=== PATIENT | male | born 1945 | race Caucasian/White ===

== ENCOUNTER 2020-10-04 14:06 | Inpatient (IN) ==
--- NOTE | 2020-10-04 16:10 | Emergency Department Note ---
Impression & Plan Gross hematuria, Self-catheterizes urinary bladder, Pulmonary embolism, Renal insufficiency, History of partial nephrectomy ED Provider Note NAME: CHELSIE MANUEL AGE: 74 SEX: M ARRIVES VIA: Walk-In INFORMANT: Patient , ED PROVIDER(S): Martin Staley MD CHIEF COMPLAINT: Hematuria PLAN: Disposition: Admit MEDICAL DECISION MAKING: The patient is a pleasant 74-year-old gentleman with a pmhx of a remote history of renal cancer s/p partial right nephrectomy, COPD, CHF, BPH needing to self straight cath, HTN who presents emergency department for evaluation of gross hematuria that he reports has been ongoing since he was in [facility] admitting last week for SOB, diagnosed with PE and started on Lovenox. He reports he began to have blood in his urine the day he presented to [place] ED and had a cath performed that was traumatic and then his bleeding continued until today. He reports he was discharged with plan to follow up with his pcp to monitor his bloody urine but to continue his Lovenox. He reports he was then referred back to [place] ED where he had repeat blood work that demonstrates worsening renal function. Records obtain document discussion with nephrology and patient was to f/u with them today. However, he reports his pcp referred him here and is not aware of following up with a consumer sales representative. He reports he sees a urologist at [place] for his h/o of BPH and need for self straight cath TID. The patient and report they stopped his Lovenox injections yesterday because his bleeding continued. The patient denies dizziness, CP, SOB, n/v/d, abd pain. On arrival the patient is in NAD, AFVSS. Abdomen is benign. EKG without evidence of acute ischemia. CXR negative for acute process. WBC, 11.9, nonspecific. Platelets wnl. H/H 14.5/42 approximate to values from [place]. Chemistry without acidosis. Cr. 2.1 without prior values for comparison. LFTs and electrolytes unremarkable. UA with epithelial cells and so wiill awaite culture. 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 Unclear how these findings contribute to patient's hematuria as e is confident his blood urine began when he was admitting to [place] and had a traumatic catheterization. Given patient's hematuria with unclear chronicity of renal impairment and question of tx approach to patients PE in the setting of bleeding with failed coordination of outpatient f/u, reasonable to admit for observation and further evaluation. Patient and his are agreeable. Case was discussed with Dr. Lorenzo, [facility] [place], who will evaluate the patient for admission. Triage Nursing notes reviewed and agree them. Additional history obtained from [facility] records. Prior medical records reviewed Vital Signs: reviewed and remarkable for no significant abnormalities Differential diagnosis: Renal colic, UTI, appendicitis, diverticulitis, mesenteric ischemia, aortic pathology, infections, inflammatory bowel disease, PUD, biliary pathology, as well as other pathologies. ER treatment provided: See below. Diagnostics interpreted by me: ECG: NSR, 88 bpm, no ectopy, RBBB no overt ST elevation or depression. Cardiac Monitoring: An order for continuous cardiac monitoring was placed and demonstrated NSR, 88 bpm, no ectopy. Laboratory studies: See below. Imaging studies: XR chest 1V portable CLINICAL HISTORY: Chest Pain COMPARISON STUDY: No previous studies for comparison. FINDINGS: Lung volumes are normal. Lungs are clear. There is no pneumothorax or pleural effusion. Cardiac size is normal. Mediastinal contours are normal. There is no evidence for pulmonary edema. There may be emphysema. IMPRESSION: 1. No acute cardiopulmonary findings. 2. Possible emphysema. -- ABDOMEN AND PELVIS CT WITHOUT CONTRAST CT DOSE: 1163.24 mGy.cm HISTORY: Acute kidney injury with hematuria. recent PE dx, hematuria, LEATHA TECHNIQUE: Multiaxial CT images of the abdomen and pelvis were performed without contrast. A dose lowering technique was utilized adhering to the principles of ALARA. COMPARISON STUDY: None. FINDINGS: Mild linear scarring/atelectasis of the right middle lobe with associated traction bronchiectasis. Minimal additional scarring of the lung bases. No pneumatosis or pneumoperitoneum. The imaged inferior cardiac chambers are unremarkable. Calcified granulomata of the spleen. Unremarkable pancreas and adrenal glands. Unremarkable unenhanced liver. Gallbladder is mildly contracted. No biliary ductal dilation. Nonspecific left-sided perinephric stranding. Ureters are not well evaluated secondary to streak artifact from bilateral hip total joint arthroplasties. No right-sided hydronephrosis. Embolization coils project over the inferior pole left kidney. 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 Mild perinephric stranding. Moderate urinary bladder distention. The prostate appears to be enlarged. Mixed plaque the abdominal aorta without aneurysm. No adenopathy. Small hiatal hernia. There is no bowel obstruction or bowel wall thickening. Mild to moderate fecal retention. Normal appendix. Subcutaneous edema and hemorrhage of the left anterior abdominal wall. Degenerative changes of the pelvis and spine. No acute fracture. 30% anterior endplate compression deformity at T12 with 25% anterior endplate compression deformity at L1 demonstrate no retropulsion and are favored to be chronic. Lumbar dextroscoliosis. IMPRESSION: 1. No renal or ureteral calculi or obstructive uropathy. 2. 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 3. No large retroperitoneal hematoma. 4. No bowel obstruction or bowel wall thickening. Normal appendix. 5. Prior granulomatous disease. 6. Small hiatal hernia. 7. Additional findings as above. Consultation(s): Case was discussed with Dr. Lorenzo, [facility] hospitalist, who will evaluate the patient for admission. HPI: The patient is a pleasant 74-year-old gentleman with a pmhx of a remote history of renal cancer s/p partial right nephrectomy, COPD, CHF, BPH needing to self straight cath, HTN who presents emergency department for evaluation of gross hematuria that he reports has been ongoing since he was in [facility] admitting last week for SOB, diagnosed with PE and started on Lovenox. He reports he began to have blood in his urine the day he presented to [place] ED and had a cath performed that was traumatic and then his bleeding continued until today. He reports he was discharged with plan to follow up with his pcp to monitor his bloody urine but to continue his Lovenox. He reports he was then ref erred back to [place] ED where he had repeat blood work that demonstrates worsening renal function. Records obtain document discussion with nephrology and patient was to f/u with them today. However, he reports his pcp referred him here and is not aware of following up with a consumer sales representative. He reports he sees a urologist at [place] for his h/o of BPH and need for self straight cath TID. The patient and report they stopped his Lovenox injections yesterday because his bleeding continued. The patient denies dizziness, CP, SOB, n/v/d, abd pain. ROS: See above HPI for pertinent positives & negatives. A total of 10 systems reviewed and were otherwise negative. PAST MEDICAL HISTORY:See below. PAST SURGICAL HISTORY:See below. FAMILY HISTORY:See below. SOCIAL HISTORY:See below. HOME MEDICATIONS:See below. ALLERGIES:See below. VITALS:See below. PHYSICAL EXAMINATION: GENERAL: Awake, alert, well-appearing, in no distress HENT: Normocephalic, atraumatic. Oropharynx with dry mucous membranes and otherwise unremarkable. EYES: Normal conjunctiva. Sclera non-icteric. NECK: Supple. No nuchal rigidity. FROM. No JVD. RESPIRATORY: Clear to auscultation. CARDIAC: Regular rate, normal rhythm. Extremities warm and well perfused. Pulses equal. ABDOMEN: Soft, non-distended. No tenderness to palpation. No rebound or guarding. No masses. RECTAL: Deferred. MUSCULOSKELETAL: Chest examination reveals no tenderness. The back is symmetrical on inspection without obvious abnormality. There is no CVA tenderness to palpation. No joint edema. LOWER EXTREMITIES: Calves are equal size bilaterally and non-tender. 1+ BLE edema. No discoloration. NEURO: Normal sensorium. No sensory or motor deficits noted. SKIN: No rash or jaundice noted. Martin Staley MD Past Med/Surg History Medical History BPH loc w urin obs/LUTS CHF (congestive heart failure) CKD (chronic kidney disease) stage 3, GFR 30-59 ml/min COPD (chronic obstructive pulmonary disease) DVT (deep venous thrombosis) Gout History of colon cancer Hypertension Osteoarthritis Pulmonary embolism Renal cell carcinoma Self-catheterizes urinary bladder Surgical History History of bilateral hip replacements History of colon resection History of mandibular surgery History of partial nephrectomy History of prostate surgery Family History Other Family history non-contributory Social History Smoking Status: Former smoker Tobacco Type: Cigarettes Age Quit Using Tobacco: 24; Hx Alcohol Use: No Hx Substance Use: No Preferred Language: Panamanian Communication Ability: Effective [employer] Department Chair Required: No Beliefs That Will Affect Care: None Current Living Situation: Spouse Other Information That Helps Us Care for You: No Feels Safe at Home: Yes Safety Concerns: Feels Safe At This Time Assistive Devices: Glasses and Hearing Aid - Bilateral Allergies Allergies Allergy/AdvReac Type Severity Reaction Status Date / Time adhesive Allergy Unknown RASH Verified 10/04/20 21:12 morphine AdvReac Mild N/V Verified 10/04/20 21:12 Home Meds Home Medications Medication Instructions Recorded Confirmed Glucosamine Boswella & D 1 tab PO BID 10/04/20 10/04/20 allopurinol [Zyloprim] 100 mg PO QPM 10/04/20 10/04/20 aspirin [Aspir-Low] 81 mg PO DAILY 10/04/20 10/04/20 betamethasone, augmented 1 applic TOPICAL BID 10/04/20 10/04/20 celecoxib [Celebrex] 200 mg PO BID PRN 10/04/20 10/04/20 cinnamon bark [Cinnamon] 500 mg PO DAILY 10/04/20 10/04/20 diclofenac sodium 2 g TOPICAL TID PRN 10/04/20 10/04/20 fluticasone propion-salmeterol 1 ea INHALATION BID 10/04/20 10/04/20 [Advair Diskus] furosemide [Lasix] 20 mg PO DAILY 10/04/20 10/04/20 hydrochlorothiazide 25 mg PO DAILY 10/04/20 10/04/20 lisinopril 20 mg PO QPM 10/04/20 10/04/20 metoprolol tartrate 50 mg PO BID 10/04/20 10/04/20 simvastatin 40 mg PO HS 10/04/20 10/04/20 enoxaparin 100 mg SUBCUT HS 10/05/20 10/05/20 enoxaparin 120 mg SUBCUT QAM 10/05/20 10/05/20 Results & Data (ED) Vital Signs Vital Signs - 24 hr 10/04/20 14:20 10/04/20 15:51 10/04/20 16:15 Temperature 36.8 C Temperature Source Oral Pulse Rate 95 H 105 H Pulse Rate from SpO2 Sensor 95 H Respiratory Rate 18 17 Respiratory Effort / Characteristics Non-Labored Respiratory Depth Normal Blood Pressure 126/53 L 160/81 H Blood Pressure Mean 77 97 Pulse Oximetry 98 96 Oxygen Delivery Method Room Air Room Air Sepsis Recent Fever Within 48 Hours No Sepsis New/Unexplained Change in Mental Status No Sepsis Action Taken by Nursing No Action Required 10/04/20 16:31 10/04/20 17:30 10/04/20 18:00 Temperature Temperature Source Pulse Rate 88 83 93 H Pulse Rate from SpO2 Sensor 87 86 93 H Respiratory Rate 21 32 H Respiratory Effort / Characteristics Respiratory Depth Blood Pressure 153/67 H 141/53 H 164/86 H Blood Pressure Mean 81 68 114 Pulse Oximetry 95 95 98 Oxygen Delivery Method Sepsis Recent Fever Within 48 Hours Sepsis New/Unexplained Change in Mental Status Sepsis Action Taken by Nursing 10/04/20 19:00 10/04/20 19:01 10/04/20 19:30 Temperature Temperature Source Pulse Rate 86 84 85 Pulse Rate from SpO2 Sensor 86 86 85 Respiratory Rate 18 21 22 Respiratory Effort / Characteristics Respiratory Depth Blood Pressure 132/72 153/69 H Blood Pressure Mean 82 80 Pulse Oximetry 95 95 98 Oxygen Delivery Method Sepsis Recent Fever Within 48 Hours Sepsis New/Unexplained Change in Mental Status Sepsis Action Taken by Nursing 10/04/20 19:31 10/04/20 20:00 10/04/20 20:01 Temperature Temperature Source Pulse Rate 85 86 85 Pulse Rate from SpO2 Sensor 87 85 86 Respiratory Rate 22 22 21 Respiratory Effort / Characteristics Respiratory Depth Blood Pressure 154/72 H Blood Pressure Mean 89 Pulse Oximetry 96 94 96 Oxygen Delivery Method Sepsis Recent Fever Within 48 Hours Sepsis New/Unexplained Change in Mental Status Sepsis Action Taken by Nursing 10/04/20 20:30 10/04/20 20:31 Temperature Temperature Source Pulse Rate 88 87 Pulse Rate from SpO2 Sensor 90 86 Respiratory Rate 23 22 Respiratory Effort / Characteristics Respiratory Depth Blood Pressure 154/86 H Blood Pressure Mean 123 Pulse Oximetry 98 98 Oxygen Delivery Method Sepsis Recent Fever Within 48 Hours Sepsis New/Unexplained Change in Mental Status Sepsis Action Taken by Nursing Laboratory Data Attestation: I reviewed the patient's lab results. Result diagrams: 10/05/20 00:00 10/04/20 15:48 Lab Results 10/04/20 10/04/20 10/04/20 Range/Units 15:48 15:48 15:48 WBC 11.90 H (4.8-10.8) K/uL RBC 4.60 L (4.7-6.1) M/uL Hgb 14.5 (14.0-18.0) g/dL Hct 42.0 (42-52) % MCV 91.3 (80-100) fL MCH 31.5 (25-34) pg MCHC 34.5 (32-36) g/dL RDW Std Deviation 44.2 (36.4-46.3) fL RDW Coeff of Katherine 13.3 (11.5-14.5) % Plt Count 288 (130-400) K/uL MPV 10.3 (7.4-10.4) fL Immature Gran % (Auto) 0.7 % Neut % (Auto) 62.2 % Lymph % (Auto) 27.3 % [facility] % (Auto) 8.1 % Eos % (Auto) 1.3 % Baso % (Auto) 0.4 % Neut # (Auto) 7.40 H (1.4-6.5) K/uL Lymph # (Auto) 3.25 (1.2-3.4) K/uL [facility] # (Auto) 0.96 H (0.11-0.59) K/uL Eos # (Auto) 0.16 (0-0.5) K/uL Baso # (Auto) 0.05 (0-0.2) K/uL Immature Gran # (Auto) 0.08 H (0.00-0.02) K/uL PT 9.9 (9.0-12.0) Seconds INR 0.9 (0.9-1.1) APTT 29.9 (21.0-31.0) Seconds PTT Ratio 1.1 Sodium 135 L (136-145) mmol/L Potassium 4.5 (3.5-5.1) mmol/L Chloride 103 (98-107) mmol/L Carbon Dioxide 25 (21-32) mmol/L Anion Gap 7.0 (3-11) BUN 53 H (7-18) mg/dl Creatinine 2.19 H (0.6-1.4) mg/dl Est Cr Clr Drug Dosing 38.4 ml/min Est GFR ( Amer) 32.9 Est GFR (Non-Af Amer) 28.4 BUN/Creatinine Ratio 24.0 H (10-20) Glucose 106 H (70-99) mg/dl Calcium 9.6 (8.5-10.1) mg/dl Total Bilirubin 0.3 (0.2-1) mg/dl Direct Bilirubin 0.2 (0-0.2) mg/dl AST 28 (15-37) U/L ALT 37 (12-78) U/L Alkaline Phosphatase 95 (45-117) U/L Total Protein 7.5 (6.4-8.2) gm/dl Albumin 4.0 (3.4-5.0) gm/dl Globulin 3.5 (2.5-4.0) gm/dl Albumin/Globulin Ratio 1.2 (0.9-2) Urine Color Urine Appearance (Clear) Urine pH (4.5-7.5) Ur Specific [place] (1.000-1.060) Urine Protein (Negative) Urine Glucose (UA) (Negative) Urine Ketones (Negative) Urine Blood (Negative) Urine Nitrite (Negative) Urine Bilirubin (Negative) Urine Urobilinogen (Negative) Ur Leukocyte Esterase (Negative) Urine RBC (0-4) /hpf Urine WBC (0-5) /hpf Ur Epithelial Cells (0-5) /lpf Urine Bacteria (Negative) 10/04/20 Range/Units 15:48 WBC (4.8-10.8) K/uL RBC (4.7-6.1) M/uL Hgb (14.0-18.0) g/dL Hct (42-52) % MCV (80-100) fL MCH (25-34) pg MCHC (32-36) g/dL RDW Std Deviation (36.4-46.3) fL RDW Coeff of Katherine (11.5-14.5) % Plt Count (130-400) K/uL MPV (7.4-10.4) fL Immature Gran % (Auto) % Neut % (Auto) % Lymph % (Auto) % [facility] % (Auto) % Eos % (Auto) % Baso % (Auto) % Neut # (Auto) (1.4-6.5) K/uL Lymph # (Auto) (1.2-3.4) K/uL [facility] [place] # (Auto) (0.11-0.59) K/uL Eos # (Auto) (0-0.5) K/uL Baso # (Auto) (0-0.2) K/uL Immature Gran # (Auto) (0.00-0.02) K/uL PT (9.0-12.0) Seconds INR (0.9-1.1) APTT (21.0-31.0) Seconds PTT Ratio Sodium (136-145) mmol/L Potassium (3.5-5.1) mmol/L Chloride (98-107) mmol/L Carbon Dioxide (21-32) mmol/L Anion Gap (3-11) BUN (7-18) mg/dl Creatinine (0.6-1.4) mg/dl Est Cr Clr Drug Dosing ml/min Est GFR ( Amer) Est GFR (Non-Af Amer) BUN/Creatinine Ratio (10-20) Glucose (70-99) mg/dl Calcium (8.5-10.1) mg/dl Total Bilirubin (0.2-1) mg/dl Direct Bilirubin (0-0.2) mg/dl AST (15-37) U/L ALT (12-78) U/L Alkaline Phosphatase (45-117) U/L Total Protein (6.4-8.2) gm/dl Albumin (3.4-5.0) gm/dl Globulin (2.5-4.0) gm/dl Albumin/Globulin Ratio (0.9-2) Urine Color Red Urine Appearance Cloudy A (Clear) Urine pH (4.5-7.5) Ur Specific [place] 1.012 (1.000-1.060) Urine Protein Positive H (Negative) Urine Glucose (UA) (Negative) Urine Ketones (Negative) Urine Blood (Negative) Urine Nitrite (Negative) Urine Bilirubin (Negative) Urine Urobilinogen (Negative) Ur Leukocyte Esterase (Negative) Urine RBC >30 H (0-4) /hpf Urine WBC 10-30 H (0-5) /hpf Ur Epithelial Cells 10-20 H (0-5) /lpf Urine Bacteria 1+ H (Negative) Administered Medications Heparin Sodium/Dextrose (Heparin Sodium/Dextrose) 25,000 units in 500 mls @ 33 mls/hr IV .[id number] [facility]; Protocol Stop: 11/03/20 20:59 Last Admin: 10/05/20 00:18 Dose: 1,650 units/hr, 33 mls/hr Documented by: [id number] Cosigned by: [id number] Sodium Chloride (Nss 1000ml) 1,000 mls @ 80 mls/hr IV .[id number] SHANT Stop: 11/03/20 20:59 Last Admin: 10/04/20 23:07 Dose: 80 mls/hr Documented by: [id number] Discontinued Medications Ciprofloxacin (Ciprofloxacin 500 Mg Tab) 500 mg PO BID SHANT Stop: 10/14/20 20:59 Last Admin: 10/04/20 23:06 Dose: 500 mg Documented by: [id number] Heparin Sodium/Dextrose (Heparin Iv Standard *No* Bolus) 1 ea IV ONE ONE; Protocol Stop: 10/04/20 21:01 Last Admin: 10/05/20 00:19 Dose: 1 ea Documented by: [id number] Heparin Sodium/Dextrose (Heparin Iv Standard *No* Bolus) 1 ea IV Q15M SHANT; Protocol Stop: 11/03/20 22:59 Last Admin: 10/04/20 23:43 Dose: Not Given Documented by: [id number] Admin: 10/04/20 23:43 Dose: Not Given Documented by: [id number] Sodium Chloride (Nss) 500 mls @ 999 mls/hr IV .Q31M SHANT Stop: 10/04/20 16:45 Last Infusion: 10/04/20 17:39 Dose: 0 mls/hr Documented by: [id number] Admin: 10/04/20 17:21 Dose: 999 mls/hr Documented by: [id number] Sodium Chloride (Nss) 500 mls @ 125 mls/hr IV .Q4H SHANT Stop: 11/03/20 19:29 Last Admin: 10/04/20 21:09 Dose: Not Given Documented by: [id number] Discharge Plan Visit Data Chief Complaint: Hematuria Stated Complaint: BLOOD IN URINE, URINATING JUST A LITTLE ED Provider: Martin Staley Discharge Problem: Gross hematuria, Self-catheterizes urinary bladder, Pulmonary embolism, Renal insufficiency, History of partial nephrectomy Patient Disposition: Admitted As Inpatient Discharge Instructions Interventions: ED Discharge Assessment Last Done: 10/04/20 22:26
[2020-10-04] MEDS ORDERED: SODIUM CHLORIDE 0.9% 500 ML IV SCH ×2 (16:15→19:30)
[2020-10-04 16:24] LABS: Basophils # (auto) 0.05 K/uL (0-0.2); Basophils % (auto) 0.4 %; Eosinophils # (auto) 0.16 K/uL (0-0.5); Eosinophils % (auto) 1.3 %; Hemoglobin 14.5 g/dL (14.0-18.0); Immature Granulocytes # (auto) 0.08 K/uL (0.00-0.02); Immature Granulocytes % (auto) 0.7 %; Lymphocytes # (auto) 3.25 K/uL (1.2-3.4); Lymphocytes % (auto) 27.3 %; Mean Corpuscular Hemoglobin 31.5 pg (25-34); Mean Corpuscular Hgb Conc 34.5 g/dL (32-36); Mean Corpuscular Volume 91.3 fL (80-100); Mean Platelet Volume 10.3 fL (7.4-10.4); Monocytes # (auto) 0.96 K/uL (0.11-0.59); Monocytes % (auto) 8.1 %; Neutrophils % (auto) 62.2 %; Platelet Count 288 K/uL (130-400); RDW Coefficient of Variation 13.3 % (11.5-14.5); RDW Standard Deviation 44.2 fL (36.4-46.3)
[2020-10-04 16:41] LABS: Bilirubin Direct 0.2 mg/dl (0-0.2); Calcium 9.6 mg/dl (8.5-10.1); Creatinine Clr Calc Pharmacy 38.4 ml/min; Est GFR (African American) 32.9; Est GFR (Non-African American) 28.4; Potassium 4.5 mmol/L (3.5-5.1)
[2020-10-04 16:44] LABS: Albumin Globulin Ratio 1.2 (0.9-2); Bilirubin,Total 0.3 mg/dl (0.2-1); Globulin 3.5 gm/dl (2.5-4.0); Total Protein 7.5 gm/dl (6.4-8.2)
[2020-10-04 16:45] LABS: INR 0.9 (0.9-1.1); Partial Thromboplastin Ratio 1.1; Partial Thromboplastin Time 29.9 Seconds (21.0-31.0); Prothrombin Time 9.9 Seconds (9.0-12.0)
--- NOTE | 2020-10-04 16:52 | XRay Report ---
XR chest 1V portable CLINICAL HISTORY: Chest Pain COMPARISON STUDY: No previous studies for comparison. FINDINGS: Lung volumes are normal. Lungs are clear. There is no pneumothorax or pleural effusion. Car diac size is normal. Mediastinal contours are normal. There is no evidence for pulmonary edema. There may be emphysema. IMPRESSION: 1. No acute cardiopulmonary findings. 2. Possible emphysema. ACT 112: Negative or not required by law. Electronically signed by: Panchito Byrnes M.D. 10/04/2020 4:50 PM
--- NOTE | 2020-10-04 18:09 | CT Scan Report ---
ABDOMEN AND PELVIS CT WITHOUT CONTRAST CT DOSE: 1163.24 mGy.cm HISTORY: Acute kidney injury with hematuria. recent PE dx, hematuria, LEATHA TECHNIQUE: Multiaxial CT images of the abdomen and pelvis were performed without contrast. A dose lo wering technique was utilized adhering to the principles of ALARA. COMPARISON STUDY: None. FINDINGS: Mild linear scarring/atelectasis of the right middle lobe with associated traction bronchiectasis. Mi nimal additional scarring of the lung bases. No pneumatosis or pneumoperitoneum. The imaged inferior cardiac chambers are unremarkable. Calcified granulomata of the spleen. Unremarkable pancreas and adr enal glands. Unremarkable unenhanced liver. Gallbladder is mildly contracted. No biliary ductal dilat ion. Nonspecific left-sided perinephric stranding. Ureters are not well evaluated secondary to streak lizzie fact from bilateral hip total joint arthroplasties. No right-sided hydronephrosis. Embolization coils project over the inferior pole left kidney. There is a 5.9 x 5.7 x 6.8 cm angiomyolipoma of the infe rior pole right kidney which demonstrates mild central and peripheral hemorrhage. Mild perinephric st randing. Moderate urinary bladder distention. The prostate appears to be enlarged. Mixed plaque the a bdominal aorta without aneurysm. No adenopathy. Small hiatal hernia. There is no bowel obstruction or bowel wall thickening. Mild to moderate fecal r etention. Normal appendix. Subcutaneous edema and hemorrhage of the left anterior abdominal wall. Deg enerative changes of the pelvis and spine. No acute fracture. 30% anterior endplate compression defor mity at T12 with 25% anterior endplate compression deformity at L1 demonstrate no retropulsion and ar e favored to be chronic. Lumbar dextroscoliosis. IMPRESSION: 1. No renal or ureteral calculi or obstructive uropathy. 2. 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 3. No large retroperitoneal hematoma. 4. No bowel obstruction or bowel wall thickening. Normal appendix. 5. Prior granulomatous disease. 6. Small hiatal hernia. 7. Additional findings as above. ACT 112: Negative or not required by law. The above report was generated using voice recognition software. It may contain grammatical, syntax o r spelling errors. Electronically signed by: Emeka Sykes M.D. 10/04/2020 6:07 PM
[2020-10-04 18:31] LABS: Appearance Urine Cloudy (Clear); Color Urine Red
[2020-10-04 18:32] LABS: Sulfosalicylic Acid Urine Positive (Negative)
[2020-10-04 18:33] LABS: Protein Urine Positive (Negative); Specific Gravity Urine 1.012 (1.000-1.060)
[2020-10-04 18:35] LABS: Bacteria Urine 1+ (Negative); RBC Urine >30 /hpf (0-4)
--- NOTE | 2020-10-04 20:47 | History & Physical Report ---
Date of Service October 04, 2020 Assessment & Plan (1) Gross hematuria: Presents with persistent gross hematuria since traumatic Ramirez catheterization during hospitalization at outside hospital on 09/28 through 10/01. Worsened in the setting of therapeutic Lovenox for newly diagnosed PE. Fortunately, hemoglobin is stable and he is hemodynamically stable. He is able to pass some of his urine but has been self catheterizing 3 times daily for several years. Urinalysis here is quite bloody and is unable to be analyzed but does not show a significant amount of WBCs He was on Cipro times a 5-day course which is completed today for previous UTI. 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 after midnight just in case urology would like to take him for cystoscopy -Continue gentle IV fluids with normal saline-unclear of baseline creatinine -Continue to follow with primary urologist after discharge (2) Self-catheterizes urinary bladder: As noted above (3) Pulmonary embolism: With second and third order PE found on outside CT angiogram the chest The images from the CT from [facility] have been sent over to our PACS and hopefully will be read by radiologist as well Check Dopplers of the lower extremities for DVT He does have a history of previous left lower extremity DVT 20 years ago and perhaps this is the provoking factor He also has a history of renal cell carcinoma as well as colon cancer -Hold Lovenox for now-Lovenox was being dosed at 1 mg per kg in the setting of elevated creatinine and perhaps this was too high of a dose -Transition to heparin drip for now in case of worsening hematuria -Most likely could be discharged home on Eliquis when hematuria is improved (4) CKD (chronic kidney disease) stage 3, GFR 30-59 ml/min: Creatinine 2.1 here which is up slightly from outside records showing creatinine 1.9 on 09/26 Unclear what his baseline is Hold home Lasix, hydrochlorothiazide, and lisinopril for now-he did not take them today -Hydrating with normal saline Follow BMP in the morning He has been self catheterizing at home but could perhaps still have a postobstructive picture As long as able to drain bladder, no need for Ramirez catheter placement He did have a renal and bladder ultrasound at the outside hospital which has also been scanned into our PACS system and could be read by a radiologist in the morning (5) Hypertension: Blood pressures mildly elevated Holding home lisinopril, HCTZ, and Lasix as above for possible acute kidney injury Continue metoprolol and increase dose if needed Could add amlodipine if needed (6) Renal cell carcinoma: As above Status post partial nephrectomy on the right (7) BPH loc w urin obs/LUTS: As above, status post TURP and self catheterizes 3 times daily It appears he previously was on tamsulosin but this was not on his home medication reconciliation at this time -We will need to find out if he is supposed to be taking this at home (8) COPD (chronic obstructive pulmonary disease): No acute issues Continue home Breo (9) CHF (congestive heart failure): Mentioned as per history, unclear if diastolic or systolic He does not appear volume overloaded at this time -Holding diuretics as above Follow daily weights, I's and O's (10) Osteoarthritis: Avoid Celebrex in the setting of chronic kidney disease Tylenol as needed is okay He also uses diclofenac topically which is okay (11) Gout: No acute issues Continue home allopurinol DVT prophylaxis-Heparin drip as above, with pre-existing PE Disposition-bring in on observation for hematuria in the setting of anticoagulation as above If stabilizes could mostly discharge to home tomorrow on Eliquis History of Present Illness Chief Complaint: Bloody urine Primary Care Provider: Cesar Simon This patient is a 74-year-old male who gets most of his care done at other facilities. He has a history of right renal cell carcinoma resulting in partial nephrectomy complicated by postoperative bleeding that required embolization in 2016, TURP secondary to hypertrophy but continues to require self cath 3 times daily, RLE DVT "20 years ago", unable to recall any treatment, COPD, CHF unknown type, gout, OA, colon cancer status post partial colectomy, HTN. Last week approximately on Sep 28, the patient went to [facility] because he felt week and like he was going to pass out and was having fevers and chills. He had a negative Covid test at that time and he was diagnosed with a UTI and had a CTA of his chest that revealed a right pulmonary embolism (we have since obtained the images and are scanned into PACS) and reportedly was in the posterior pulmonary artery 2nd and 3rd branch. He was started on therapeutic Lovenox at that time and was told to follow-up with his PCP. During this stay there was attempt at placing a ramirez catheter, which the patient reports as very difficult and after the placement of the ramirez catheter is when he started having dark red hematuria. The patient was discharged with instructions to follow up with PCP. The patient went back to the [facility] yesterday for persistent hematuria. The urine did not have any clots, and has lightened up since yesterday. There was no blood on his underwear, or michele blood coming from penis, there was no blood from penis when he finished urination either. NON-CON CT of the abdomen completed today. See results below. Patient's HGB level stable from previous at 14, patient has no CP and is not symptomatic from blood loss in urine. 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 Patient will be admitted to medical surgical floor. IVF for pre-renal support and follow amount of hematuria. Will consult urology. Does not appear to have an obstruction nor bleeding coming from below the bladder. Transition anticoagulation from Lovenox to Heparin drip for now for pulmonary embolism in case of recurrent heavy bleeding. Allergies Allergy/AdvReac Type Severity Reaction Status Date / Time adhesive Allergy Unknown RASH Verified 10/04/20 21:12 morphine AdvReac Mild N/V Verified 10/04/20 21:12 Home Medications Medication Instructions Recorded Confirmed Type Glucosamine Boswella & D 1 tab PO BID 10/04/20 10/04/20 History allopurinol [Zyloprim] 100 mg PO QPM 10/04/20 10/04/20 History aspirin [Aspir-Low] 81 mg PO DAILY 10/04/20 10/04/20 History betamethasone, augmented 1 applic TOPICAL BID 10/04/20 10/04/20 History celecoxib [Celebrex] 200 mg PO BID PRN 10/04/20 10/04/20 History cinnamon bark [Cinnamon] 500 mg PO DAILY 10/04/20 10/04/20 History diclofenac sodium 2 g TOPICAL TID PRN 10/04/20 10/04/20 History fluticasone propion-salmeterol 1 ea INHALATION BID 10/04/20 10/04/20 History [Advair Diskus] furosemide [Lasix] 20 mg PO DAILY 10/04/20 10/04/20 History hydrochlorothiazide 25 mg PO DAILY 10/04/20 10/04/20 History lisinopril 20 mg PO QPM 10/04/20 10/04/20 History metoprolol tartrate 50 mg PO BID 10/04/20 10/04/20 History simvastatin 40 mg PO HS 10/04/20 10/04/20 History enoxaparin 100 mg SUBCUT HS 10/05/20 10/05/20 History enoxaparin 120 mg SUBCUT QAM 10/05/20 10/05/20 History Past Med/Surg History Medical History BPH loc w urin obs/LUTS CHF (congestive heart failure) CKD (chronic kidney disease) stage 3, GFR 30-59 ml/min COPD (chronic obstructive pulmonary disease) DVT (deep venous thrombosis) Gout History of colon cancer Hypertension Osteoarthritis Pulmonary embolism Renal cell carcinoma Self-catheterizes urinary bladder Surgical History History of bilateral hip replacements History of colon resection History of mandibular surgery History of partial nephrectomy History of prostate surgery Family History (Updated 10/05/20 @ 01:28 by Kecia Webster MD) Other Family history non-contributory Social History (Updated 10/05/20 @ 01:29 by Kecia Webster MD) Smoking Status: Former smoker Tobacco Type: Cigarettes Age Quit Using Tobacco: 24; Hx Alcohol Use: No Hx Substance Use: No Preferred Language: Mohawk Communication Ability: Effective 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 Has some mild suprapubic fullness but thinks that he has to urinate or self catheterizes right now. No constipation or diarrhea. No further fevers or chills. No headache or lightheadedness, no sore throat or loss of sense of taste or smell. He does report that while he was hospitalized at the outside hospital, he had a roommate that had to be moved out of the room for testing positive for Covid. Physical Exam Constitutional: WD/WN, vitals as above + obese Eyes: PERRL, conjunctivae normal, anicteric sclerae ENMT: external ear and nose normal, oropharynx normal Neck: trachea midline, no thyromegaly Respiratory: normal respiratory effort, lungs clear to auscultation Cardiovascular: RRR, no murmur, no edema Chest (Breasts): Chest: normal inspection of chest Gastrointestinal (Abdomen): Inspection/Auscultation: abdomen normal to inspection and normal bowel sounds; abdomen not distended Percussion/Palpation: + abdomen tender (Mild in the suprapubic region without guarding or tenderness) and abdomen soft Musculoskeletal: Extremities: extremities normal to inspection; no cyanosis and no clubbing Skin: no rashes, warm and dry Neurologic: moves all extremities and awake; no focal motor deficits Psychiatric: A+Ox3, euthymic affect Genitourinary: no testicular masses, no penis abnormality (No discharge from the meatus) Lymphatic: no lymphedema Results & Data Results & Data ([facility]) Vital Signs (Past 12 Hours) Vital Signs Temp Pulse Resp BP Pulse Ox 10/04/20 18:00 93 H 32 H 164/86 H 98 10/04/20 17:30 83 21 141/53 H 95 10/04/20 16:31 88 153/67 H 95 10/04/20 15:51 105 H 17 160/81 H 96 10/04/20 14:20 36.8 C 95 H 18 126/53 L 98 Laboratory Results 10/05/20 10/04/20 10/04/20 Range/Units 00:00 23:26 23:26 WBC 11.47 H (4.8-10.8) K/uL RBC 4.35 L (4.7-6.1) M/uL Hgb 13.6 L (14.0-18.0) g/dL Hct 39.8 L (42-52) % MCV 91.5 (80-100) fL MCH 31.3 (25-34) pg MCHC 34.2 (32-36) g/dL RDW Std Deviation 43.9 (36.4-46.3) fL RDW Coeff of Katherine 13.1 (11.5-14.5) % Plt Count 235 (130-400) K/uL MPV 10.1 (7.4-10.4) fL Immature Gran % (Auto) 0.4 % Neut % (Auto) 61.4 % Lymph % (Auto) 29.9 % [place] % (Auto) 6.7 % Eos % (Auto) 1.3 % Baso % (Auto) 0.3 % Neut # (Auto) 7.04 H (1.4-6.5) K/uL Lymph # (Auto) 3.43 H (1.2-3.4) K/uL [place] # (Auto) 0.77 H (0.11-0.59) K/uL Eos # (Auto) 0.15 (0-0.5) K/uL Baso # (Auto) 0.03 (0-0.2) K/uL Immature Gran # (Auto) 0.05 H (0.00-0.02) K/uL PT 10.3 (9.0-12.0) Seconds INR 1.0 (0.9-1.1) APTT 30.5 (21.0-31.0) Seconds PTT Ratio 1.1 Sodium (136-145) mmol/L Potassium (3.5-5.1) mmol/L Chloride (98-107) mmol/L Carbon Dioxide (21-32) mmol/L Anion Gap (3-11) BUN (7-18) mg/dl Creatinine (0.6-1.4) mg/dl Est Cr Clr Drug Dosing ml/min Est GFR ( Amer) Est GFR (Non-Af Amer) BUN/Creatinine Ratio (10-20) Glucose (70-99) mg/dl Calcium (8.5-10.1) mg/dl Total Bilirubin (0.2-1) mg/dl Direct Bilirubin (0-0.2) mg/dl AST (15-37) U/L ALT (12-78) U/L Alkaline Phosphatase (45-117) U/L Total Protein (6.4-8.2) gm/dl Albumin (3.4-5.0) gm/dl Globulin (2.5-4.0) gm/dl Albumin/Globulin Ratio (0.9-2) Urine Color Urine Appearance (Clear) Urine pH (4.5-7.5) Ur Specific [place] (1.000-1.060) Urine Protein (Negative) Urine Glucose (UA) (Negative) Urine Ketones (Negative) Urine Blood (Negative) Urine Nitrite (Negative) Urine Bilirubin (Negative) Urine Urobilinogen (Negative) Ur Leukocyte Esterase (Negative) Urine RBC (0-4) /hpf Urine WBC (0-5) /hpf Ur Epithelial Cells (0-5) /lpf Urine Bacteria (Negative) COVID-19 Eval Order SARS-CoV-2, RNA, NAAT (NEGATIVE) 10/04/20 10/04/20 10/04/20 Range/Units 21:05 21:05 15:48 WBC (4.8-10.8) K/uL RBC (4.7-6.1) M/uL Hgb (14.0-18.0) g/dL Hct (42-52) % MCV (80-100) fL MCH (25-34) pg MCHC (32-36) g/dL RDW Std Deviation (36.4-46.3) fL RDW Coeff of Katherine (11.5-14.5) % Plt Count (130-400) K/uL MPV (7.4-10.4) fL Immature Gran % (Auto) % Neut % (Auto) % Lymph % (Auto) % [place] % (Auto) % Eos % (Auto) % Baso % (Auto) % Neut # (Auto) (1.4-6.5) K/uL Lymph # (Auto) (1.2-3.4) K/uL [place] # (Auto) (0.11-0.59) K/uL Eos # (Auto) (0-0.5) K/uL Baso # (Auto) (0-0.2) K/uL Immature Gran # (Auto) (0.00-0.02) K/uL PT (9.0-12.0) Seconds INR (0.9-1.1) APTT (21.0-31.0) Seconds PTT Ratio Sodium (136-145) mmol/L Potassium (3.5-5.1) mmol/L Chloride (98-107) mmol/L Carbon Dioxide (21-32) mmol/L Anion Gap (3-11) BUN (7-18) mg/dl Creatinine (0.6-1.4) mg/dl Est Cr Clr Drug Dosing ml/min Est GFR ( Amer) Est GFR (Non-Af Amer) BUN/Creatinine Ratio (10-20) Glucose (70-99) mg/dl Calcium (8.5-10.1) mg/dl Total Bilirubin (0.2-1) mg/dl Direct Bilirubin (0-0.2) mg/dl AST (15-37) U/L ALT (12-78) U/L Alkaline Phosphatase (45-117) U/L Total Protein (6.4-8.2) gm/dl Albumin (3.4-5.0) gm/dl Globulin (2.5-4.0) gm/dl Albumin/Globulin Ratio (0.9-2) Urine Color Red Urine Appearance Cloudy A (Clear) Urine pH (4.5-7.5) Ur Specific [place] 1.012 (1.000-1.060) Urine Protein Positive H (Negative) Urine Glucose (UA) (Negative) Urine Ketones (Negative) Urine Blood (Negative) Urine Nitrite (Negative) Urine Bilirubin (Negative) Urine Urobilinogen (Negative) Ur Leukocyte Esterase (Negative) Urine RBC >30 H (0-4) /hpf Urine WBC 10-30 H (0-5) /hpf Ur Epithelial Cells 10-20 H (0-5) /lpf Urine Bacteria 1+ H (Negative) COVID-19 Eval Order Covid19 [facility]Now [facility] SARS-CoV-2, RNA, NAAT NEGATIVE (NEGATIVE) 10/04/20 10/04/20 10/04/20 Range/Units 15:48 15:48 15:48 WBC 11.90 H (4.8-10.8) K/uL RBC 4.60 L (4.7-6.1) M/uL Hgb 14.5 (14.0-18.0) g/dL Hct 42.0 (42-52) % MCV 91.3 (80-100) fL MCH 31.5 (25-34) pg MCHC 34.5 (32-36) g/dL RDW Std Deviation 44.2 (36.4-46.3) fL RDW Coeff of Katherine 13.3 (11.5-14.5) % Plt Count 288 (130-400) K/uL MPV 10.3 (7.4-10.4) fL Immature Gran % (Auto) 0.7 % Neut % (Auto) 62.2 % Lymph % (Auto) 27.3 % [place] % (Auto) 8.1 % Eos % (Auto) 1.3 % Baso % (Auto) 0.4 % Neut # (Auto) 7.40 H (1.4-6.5) K/uL Lymph # (Auto) 3.25 (1.2-3.4) K/uL [place] # (Auto) 0.96 H (0.11-0.59) K/uL Eos # (Auto) 0.16 (0-0.5) K/uL Baso # (Auto) 0.05 (0-0.2) K/uL Immature Gran # (Auto) 0.08 H (0.00-0.02) K/uL PT 9.9 (9.0-12.0) Seconds INR 0.9 (0.9-1.1) APTT 29.9 (21.0-31.0) Seconds PTT Ratio 1.1 Sodium 135 L (136-145) mmol/L Potassium 4.5 (3.5-5.1) mmol/L Chloride 103 (98-107) mmol/L Carbon Dioxide 25 (21-32) mmol/L Anion Gap 7.0 (3-11) BUN 53 H (7-18) mg/dl Creatinine 2.19 H (0.6-1.4) mg/dl Est Cr Clr Drug Dosing 38.4 ml/min Est GFR ( Amer) 32.9 Est GFR (Non-Af Amer) 28.4 BUN/Creatinine Ratio 24.0 H (10-20) Glucose 106 H (70-99) mg/dl Calcium 9.6 (8.5-10.1) mg/dl Total Bilirubin 0.3 (0.2-1) mg/dl Direct Bilirubin 0.2 (0-0.2) mg/dl AST 28 (15-37) U/L ALT 37 (12-78) U/L Alkaline Phosphatase 95 (45-117) U/L Total Protein 7.5 (6.4-8.2) gm/dl Albumin 4.0 (3.4-5.0) gm/dl Globulin 3.5 (2.5-4.0) gm/dl Albumin/Globulin Ratio 1.2 (0.9-2) Urine Color Urine Appearance (Clear) Urine pH (4.5-7.5) Ur Specific [place] (1.000-1.060) Urine Protein (Negative) Urine Glucose (UA) (Negative) Urine Ketones (Negative) Urine Blood (Negative) Urine Nitrite (Negative) Urine Bilirubin (Negative) Urine Urobilinogen (Negative) Ur Leukocyte Esterase (Negative) Urine RBC (0-4) /hpf Urine WBC (0-5) /hpf Ur Epithelial Cells (0-5) /lpf Urine Bacteria (Negative) COVID-19 Eval Order SARS-CoV-2, RNA, NAAT (NEGATIVE) Diagnostic Findings CT abdomen/pelvis images personally reviewed by me agree with following report: ABDOMEN AND PELVIS CT WITHOUT CONTRAST CT DOSE: 1163.24 mGy.cm HISTORY: Acute kidney injury with hematuria. recent PE dx, hematuria, LEATHA TECHNIQUE: Multiaxial CT images of the abdomen and pelvis were performed without contrast. A dose lowering technique was utilized adhering to the principles of ALARA. COMPARISON STUDY: None. FINDINGS: Mild linear scarring/atelectasis of the right middle lobe with associated traction bronchiectasis. Minimal additional scarring of the lung bases. No pneumatosis or pneumoperitoneum. The imaged inferior cardiac chambers are unremarkable. Calcified granulomata of the spleen. Unremarkable pancreas and adrenal glands. Unremarkable unenhanced liver. Gallbladder is mildly contracted. No biliary ductal dilation. Nonspecific left-sided perinephric stranding. Ureters are not well evaluated secondary to streak artifact from bilateral hip total joint arthroplasties. No right-sided hydronephrosis. Embolization coils project over the inferior pole left kidney. 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 Mild perinephric stranding. Moderate urinary bladder distention. The prostate appears to be enlarged. Mixed plaque the abdominal aorta without aneurysm. No adenopathy. Small hiatal hernia. There is no bowel obstruction or bowel wall thickening. Mild to moderate fecal retention. Normal appendix. Subcutaneous edema and hemorrhage of the left anterior abdominal wall. Degenerative changes of the pelvis and spine. No acute fracture. 30% anterior endplate compression deformity at T12 with 25% anterior endplate compression deformity at L1 demonstrate no retropulsion and are favored to be chronic. Lumbar dextroscoliosis. IMPRESSION: 1. No renal or ureteral calculi or obstructive uropathy. 2. 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 3. No large retroperitoneal hematoma. 4. No bowel obstruction or bowel wall thickening. Normal appendix. 5. Prior granulomatous disease. 6. Small hiatal hernia. 7. Additional findings as above. XR chest 1V portable CLINICAL HISTORY: Chest Pain COMPARISON STUDY: No previous studies for comparison. FINDINGS: Lung volumes are normal. Lungs are clear. There is no pneumothorax or pleural effusion. Cardiac size is normal. Mediastinal contours are normal. There is no evidence for pulmonary edema. There may be emphysema. IMPRESSION: 1. No acute cardiopulmonary findings. 2. Possible emphysema. ECG Additional Comments: ECG on 10/04/2028 1629 with normal sinus rhythm, rate 88, right bundle branch block which is new from previous in 2004 Code Status & VTE Plan Code Status Full code VTE Prophylaxis Plan VTE Prophylaxis will be ordered: Yes PG Care Time/CCT Total # of Minutes Spent Total Time Spent with Patient: Total time spent is greater than 50% in coordination of care (as documented) at patient's floor/unit and/or counseling patient: Coding Level of Care Code 41718 OBS Care - Level 3 Diagnoses Gross hematuria R31.0 Self-catheterizes urinary bladder Z78.9 Pulmonary embolism I26.99 CKD (chronic kidney disease) stage 3, GFR 30-59 ml/min N18.30 Hypertension I10 Renal cell carcinoma C64.9 BPH loc w urin obs/LUTS N40.1 COPD (chronic obstructive pulmonary disease) J44.9 CHF (congestive heart failure) I50.9 Osteoarthritis M19.90 Gout M10.9
[2020-10-04] MEDS ORDERED: Heparin IV Standard *NO* Bolus IV ONE (21:00)
[2020-10-04] MEDS ORDERED: CIPROFLOXACIN 500 MG TAB PO SCH (21:00)
[2020-10-04] MEDS ORDERED: ONDANSETRON INJ 2 MG/ML 2 ML VIAL IV PRN (22:48)
[2020-10-04] MEDS ORDERED: POLYETHYLENE (MIRALAX) 17 GM PACK PO PRN (22:48)
[2020-10-04] MEDS: SODIUM CHLORIDE 0.9% 1000ML 1,000 ML IV SCH (23:07)
[2020-10-04] MEDS: Heparin IV Standard *NO* Bolus IV SCH (23:43)
[2020-10-04 23:47] LABS: Partial Thromboplastin Ratio 1.1; Partial Thromboplastin Time 30.5 Seconds (21.0-31.0)
[2020-10-05 00:10] LABS: Prothrombin Time 10.3 Seconds (9.0-12.0)
[2020-10-05 00:14] LABS: Basophils # (auto) 0.03 K/uL (0-0.2); Basophils % (auto) 0.3 %; Eosinophils # (auto) 0.15 K/uL (0-0.5); Eosinophils % (auto) 1.3 %; Hematocrit (blood only) 39.8 % (42-52); Hemoglobin 13.6 g/dL (14.0-18.0); Immature Granulocytes # (auto) 0.05 K/uL (0.00-0.02); Immature Granulocytes % (auto) 0.4 %; Lymphocytes # (auto) 3.43 K/uL (1.2-3.4); Lymphocytes % (auto) 29.9 %; Mean Corpuscular Hemoglobin 31.3 pg (25-34); Mean Corpuscular Volume 91.5 fL (80-100); Mean Platelet Volume 10.1 fL (7.4-10.4); Monocytes # (auto) 0.77 K/uL (0.11-0.59); Monocytes % (auto) 6.7 %; Neutrophils # (auto) 7.04 K/uL (1.4-6.5); Neutrophils % (auto) 61.4 %; Platelet Count 235 K/uL (130-400); RDW Coefficient of Variation 13.1 % (11.5-14.5); RDW Standard Deviation 43.9 fL (36.4-46.3); Red Blood Count 4.35 M/uL (4.7-6.1); White Blood Count 11.47 K/uL (4.8-10.8)
[2020-10-05] MEDS: HEPARIN SODIUM/DEXTROSE 25,000 UNITS/500 ML BAG IV SCH ×2 (00:18→14:12)
[2020-10-05 00:52] LABS: Mean Corpuscular Hgb Conc 34.2 g/dL (32-36)
[2020-10-05] MEDS ORDERED: CeleBREX 200 MG CAP PO PRN (01:13)
[2020-10-05 06:53] LABS: Basophils # (auto) 0.04 K/uL (0-0.2); Basophils % (auto) 0.4 %; Eosinophils # (auto) 0.22 K/uL (0-0.5); Hematocrit (blood only) 38.5 % (42-52); Hemoglobin 13.1 g/dL (14.0-18.0); Immature Granulocytes # (auto) 0.06 K/uL (0.00-0.02); Immature Granulocytes % (auto) 0.5 %; Lymphocytes # (auto) 3.98 K/uL (1.2-3.4); Lymphocytes % (auto) 35.3 %; Mean Corpuscular Hemoglobin 31.2 pg (25-34); Mean Corpuscular Volume 91.7 fL (80-100); Monocytes # (auto) 0.71 K/uL (0.11-0.59); Monocytes % (auto) 6.3 %; Neutrophils # (auto) 6.26 K/uL (1.4-6.5); Neutrophils % (auto) 55.5 %; Platelet Count 224 K/uL (130-400); RDW Coefficient of Variation 13.2 % (11.5-14.5); RDW Standard Deviation 43.9 fL (36.4-46.3); White Blood Count 11.27 K/uL (4.8-10.8)
[2020-10-05 07:11] LABS: BUN Creatinine Ratio 22.8 (10-20); Calcium 8.7 mg/dl (8.5-10.1); Creatinine Clr Calc Pharmacy 46.6 ml/min; Est GFR (African American) 42.6; Est GFR (Non-African American) 36.8; Potassium 4.1 mmol/L (3.5-5.1)
[2020-10-05 07:12] LABS: Partial Thromboplastin Ratio 2.1
--- NOTE | 2020-10-05 07:13 | Ultrasound Report ---
BILATERAL LOWER EXTREMITY VENOUS DOPPLER HISTORY: Bilateral leg swelling. COMPARISON STUDY: None. FINDINGS: There is normal compressibility, flow, and augmentation within the bilateral lower extremit y deep venous systems. IMPRESSION: No DVT within the right or left lower extremity. ACT 112: Negative or not required by law. Electronically signed by: Jericho Mccoy M.D. 10/05/2020 7:12 AM
[2020-10-05 07:23] LABS: Partial Thromboplastin Time 59.1 Seconds (21.0-31.0)
[2020-10-05] MEDS ORDERED: FUROSEMIDE 20 MG TAB PO SCH (09:00)
[2020-10-05] MEDS ORDERED: hydroCHLOROthiazide 25 MG TAB PO SCH (09:00)
[2020-10-05] MEDS: FLUTICASONE/VILANTEROL 100/25MCG 14 PUFFS/INHALER INH SCH (09:36)
[2020-10-05] MEDS: BETAMETHASONE DIP AUG (DIPROLENE) 0.05% CR 15 GM TUBE EXT SCH ×2 (09:36→20:30)
--- NOTE | 2020-10-05 09:36 | Hospitalist Progress Note ---
Date of Service October 05, 2020 Assessment & Plan (1) Gross hematuria: Presents with persistent gross hematuria since traumatic Red catheterization during hospitalization at outside hospital on 09/28 through 10/01. Worsened in the setting of therapeutic Lovenox for newly diagnosed PE. Fortunately, hemoglobin is stable and he is hemodynamically stable. He is able to pass some of his urine but has been self catheterizing 3 times daily for several years. Urinalysis here is quite bloody and is unable to be analyzed but does not show a significant amount of WBCs He was on Cipro times a 5-day course which is completed today for previous UTI. 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 Reported less blood in urine with st cath * Cr improved with fluids to 1.77 from 2.19 * Continue bladder scan Qshift and St cath for PVR >350ml * Urine culture pin-point growth, reincubating -- follow * CBC, BMP in AM (2) Self-catheterizes urinary bladder: * As noted above (3) Pulmonary embolism: * With second and third order PE found on outside CT angiogram the chest * The images from the CT from [facility] have been sent over to our PACS and hopefully will be read by radiologist as well * Dopplers NEGATIVE for DVT * He does have a history of previous left lower extremity DVT 20 years ago and perhaps this is the provoking factor * He also has a history of renal cell carcinoma as well as colon cancer * Hold Lovenox for now-Lovenox was being dosed at 1 mg per kg in the setting of elevated creatinine and perhaps this was too high of a dose * Heparin gtt as above * Could likely d/c on Eliquis once hematuria improved (4) CKD (chronic kidney disease) stage 3, GFR 30-59 ml/min: * Creatinine 2.1 here which is up slightly from outside records showing creatinine 1.9 on 09/26 * Unclear what his baseline is * Hold home Lasix, hydrochlorothiazide, and lisinopril for now-he did not take them today * Hydrating with normal saline * Cr improved to 1.77 * BMP in AM He has been self catheterizing at home but could perhaps still have a postobstructive picture As long as able to drain bladder, no need for Red catheter placement He did have a renal and bladder ultrasound at the outside hospital which has also been scanned into our PACS system and could be read by a radiologist in the morning (5) Hypertension: * Blood pressures mildly elevated, 150/73 * Holding home lisinopril, HCTZ, and Lasix as above for possible acute kidney injury * Continue metoprolol and increase dose if needed * Continue to monitor (6) Renal cell carcinoma: * As above * Status post partial nephrectomy on the right (7) BPH loc w urin obs/LUTS: * As above, status post TURP and self catheterizes 3 times daily * It appears he previously was on tamsulosin but this was not on his home medication reconciliation at this time * Flomax HS (8) COPD (chronic obstructive pulmonary disease): * No acute issues * Continue home Breo (9) CHF (congestive heart failure): * Mentioned as per history, unclear if diastolic or systolic * He does not appear volume overloaded at this time * Holding diuretics as above * Follow daily weights, I's and O's (10) Osteoarthritis: * Avoid Celebrex in the setting of chronic kidney disease * Tylenol as needed is okay * He also uses diclofenac topically which is okay (11) Gout: * No acute issues * Continue home allopurinol DVT prophylaxis-Heparin drip as above, with pre-existing PE Disposition- possible discharge tomorrow on Eliquis if hematuria resolved Admission and Anticipated Discharge Date Admission Date: October 04, 2020 Subjective Patient evaluated this morning. Urine appearing less bloody per his account although he bee better success at home with rigid catheters he gets from [facility]. Does have some shortness of breath at baseline, over the past couple of weeks but was recently diagnosed with a PE and was started on Lovenox. Endorses some issues with memory problems over past couple months. No glove/stocking paresthesias. Rare etoh use. Quit smoking at age 20 (started in teens, 1.5ppd). Discussed hemoglobin appears stable but some dilutional effects. Denies history of prostate ca or biopsy but he did have nephrectomy and a TURP done in the past. States stream has been 1/3 of what it has been and "they didn't do a good enough job apparently". Endorses weight loss approximately 20lb but has been watching diet, although does seem somewhat intentional upon questioning. Discussed on heparin drip in place of Lovenox and we will hope for transition to NOAC at discharge. Review of Systems Review of Systems: All systems reviewed & are unremarkable except as noted in HPI & below Physical Exam Constitutional: WD/WN, vitals as above + obese Eyes: PERRL, conjunctivae normal, anicteric sclerae ENMT: external ear and nose normal, oropharynx normal Neck: trachea midline, no thyromegaly Respiratory: normal respiratory effort, lungs clear to auscultation Cardiovascular: RRR, no murmur, no edema Chest (Breasts): Chest: normal inspection of chest Gastrointestinal (Abdomen): Inspection/Auscultation: abdomen normal to inspection and normal bowel sounds; abdomen not distended Percussion/Palpation: + abdomen tender (minimal suprapubic) and abdomen soft; no guarding and abdomen not rigid Musculoskeletal: Extremities: extremities normal to inspection; no cyanosis and no clubbing Skin: no rashes, warm and dry Neurologic: moves all extremities and awake; no focal motor deficits Psychiatric: A+Ox3, euthymic affect Genitourinary: no testicular masses, no penis abnormality (No discharge from the meatus) Lymphatic: no lymphedema Results & Data Results & Data ([facility]) Vital Signs (Past 12 Hours) Vital Signs Temp Pulse Resp BP Pulse Ox 10/05/20 07:43 36.3 C L 83 16 149/71 H 94 10/04/20 22:49 36.6 C 97 H 18 148/70 H 96 Laboratory Results 10/05/20 10/05/20 10/05/20 Range/Units 06:38 06:38 06:38 WBC (4.8-10.8) K/uL RBC (4.7-6.1) M/uL Hgb (14.0-18.0) g/dL Hct (42-52) % MCV (80-100) fL MCH (25-34) pg MCHC (32-36) g/dL RDW Std Deviation (36.4-46.3) fL RDW Coeff of Katherine (11.5-14.5) % Plt Count (130-400) K/uL MPV (7.4-10.4) fL Immature Gran % (Auto) % Neut % (Auto) % Lymph % (Auto) % Bethel % (Auto) % Eos % (Auto) % Baso % (Auto) % Neut # (Auto) (1.4-6.5) K/uL Lymph # (Auto) (1.2-3.4) K/uL Bethel # (Auto) (0.11-0.59) K/uL Eos # (Auto) (0-0.5) K/uL Baso # (Auto) (0-0.2) K/uL Immature Gran # (Auto) (0.00-0.02) K/uL PT (9.0-12.0) Seconds INR (0.9-1.1) APTT 59.1 H* (21.0-31.0) Seconds PTT Ratio 2.1 Sodium 140 (136-145) mmol/L Potassium 4.1 (3.5-5.1) mmol/L Chloride 110 H (98-107) mmol/L Carbon Dioxide 24 (21-32) mmol/L Anion Gap 6.0 (3-11) BUN 40 H (7-18) mg/dl Creatinine 1.77 H D (0.6-1.4) mg/dl Est Cr Clr Drug Dosing 46.6 ml/min Est GFR ( Amer) 42.6 Est GFR (Non-Af Amer) 36.8 BUN/Creatinine Ratio 22.8 H (10-20) Glucose 91 (70-99) mg/dl Calcium 8.7 (8.5-10.1) mg/dl Total Bilirubin (0.2-1) mg/dl Direct Bilirubin (0-0.2) mg/dl AST (15-37) U/L ALT (12-78) U/L Alkaline Phosphatase (45-117) U/L Total Protein (6.4-8.2) gm/dl Albumin (3.4-5.0) gm/dl Globulin (2.5-4.0) gm/dl Albumin/Globulin Ratio (0.9-2) Prostate Specific Ag 2.510 (0-4) ng/ml Urine Color Urine Appearance (Clear) Urine pH (4.5-7.5) Ur Specific [place] (1.000-1.060) Urine Protein (Negative) Urine Glucose (UA) (Negative) Urine Ketones (Negative) Urine Blood (Negative) Urine Nitrite (Negative) Urine Bilirubin (Negative) Urine Urobilinogen (Negative) Ur Leukocyte Esterase (Negative) Urine RBC (0-4) /hpf Urine WBC (0-5) /hpf Ur Epithelial Cells (0-5) /lpf Urine Bacteria (Negative) COVID-19 Eval Order SARS-CoV-2, RNA, NAAT (NEGATIVE) 10/05/20 10/05/20 10/04/20 Range/Units 06:38 00:00 23:26 WBC 11.27 H 11.47 H (4.8-10.8) K/uL RBC 4.20 L 4.35 L (4.7-6.1) M/uL Hgb 13.1 L 13.6 L (14.0-18.0) g/dL Hct 38.5 L 39.8 L (42-52) % MCV 91.7 91.5 (80-100) fL MCH 31.2 31.3 (25-34) pg MCHC 34.0 34.2 (32-36) g/dL RDW Std Deviation 43.9 43.9 (36.4-46.3) fL RDW Coeff of Katherine 13.2 13.1 (11.5-14.5) % Plt Count 224 235 (130-400) K/uL MPV 10.0 10.1 (7.4-10.4) fL Immature Gran % (Auto) 0.5 0.4 % Neut % (Auto) 55.5 61.4 % Lymph % (Auto) 35.3 29.9 % Bethel % (Auto) 6.3 6.7 % Eos % (Auto) 2.0 1.3 % Baso % (Auto) 0.4 0.3 % Neut # (Auto) 6.26 7.04 H (1.4-6.5) K/uL Lymph # (Auto) 3.98 H 3.43 H (1.2-3.4) K/uL Bethel # (Auto) 0.71 H 0.77 H (0.11-0.59) K/uL Eos # (Auto) 0.22 0.15 (0-0.5) K/uL Baso # (Auto) 0.04 0.03 (0-0.2) K/uL Immature Gran # (Auto) 0.06 H 0.05 H (0.00-0.02) K/uL PT 10.3 (9.0-12.0) Seconds INR 1.0 (0.9-1.1) APTT (21.0-31.0) Seconds PTT Ratio Sodium (136-145) mmol/L Potassium (3.5-5.1) mmol/L Chloride (98-107) mmol/L Carbon Dioxide (21-32) mmol/L Anion Gap (3-11) BUN (7-18) mg/dl Creatinine (0.6-1.4) mg/dl Est Cr Clr Drug Dosing ml/min Est GFR ( Amer) Est GFR (Non-Af Amer) BUN/Creatinine Ratio (10-20) Glucose (70-99) mg/dl Calcium (8.5-10.1) mg/dl Total Bilirubin (0.2-1) mg/dl Direct Bilirubin (0-0.2) mg/dl AST (15-37) U/L ALT (12-78) U/L Alkaline Phosphatase (45-117) U/L Total Protein (6.4-8.2) gm/dl Albumin (3.4-5.0) gm/dl Globulin (2.5-4.0) gm/dl Albumin/Globulin Ratio (0.9-2) Prostate Specific Ag (0-4) ng/ml Urine Color Urine Appearance (Clear) Urine pH (4.5-7.5) Ur Specific [place] (1.000-1.060) Urine Protein (Negative) Urine Glucose (UA) (Negative) Urine Ketones (Negative) Urine Blood (Negative) Urine Nitrite (Negative) Urine Bilirubin (Negative) Urine Urobilinogen (Negative) Ur Leukocyte Esterase (Negative) Urine RBC (0-4) /hpf Urine WBC (0-5) /hpf Ur Epithelial Cells (0-5) /lpf Urine Bacteria (Negative) COVID-19 Eval Order SARS-CoV-2, RNA, NAAT (NEGATIVE) 10/04/20 10/04/20 10/04/20 Range/Units 23:26 21:05 21:05 WBC (4.8-10.8) K/uL RBC (4.7-6.1) M/uL Hgb (14.0-18.0) g/dL Hct (42-52) % MCV (80-100) fL MCH (25-34) pg MCHC (32-36) g/dL RDW Std Deviation (36.4-46.3) fL RDW Coeff of Katherine (11.5-14.5) % Plt Count (130-400) K/uL MPV (7.4-10.4) fL Immature Gran % (Auto) % Neut % (Auto) % Lymph % (Auto) % Bethel % (Auto) % Eos % (Auto) % Baso % (Auto) % Neut # (Auto) (1.4-6.5) K/uL Lymph # (Auto) (1.2-3.4) K/uL Bethel # (Auto) (0.11-0.59) K/uL Eos # (Auto) (0-0.5) K/uL Baso # (Auto) (0-0.2) K/uL Immature Gran # (Auto) (0.00-0.02) K/uL PT (9.0-12.0) Seconds INR (0.9-1.1) APTT 30.5 (21.0-31.0) Seconds PTT Ratio 1.1 Sodium (136-145) mmol/L Potassium (3.5-5.1) mmol/L Chloride (98-107) mmol/L Carbon Dioxide (21-32) mmol/L Anion Gap (3-11) BUN (7-18) mg/dl Creatinine (0.6-1.4) mg/dl Est Cr Clr Drug Dosing ml/min Est GFR ( Amer) Est GFR (Non-Af Amer) BUN/Creatinine Ratio (10-20) Glucose (70-99) mg/dl Calcium (8.5-10.1) mg/dl Total Bilirubin (0.2-1) mg/dl Direct Bilirubin (0-0.2) mg/dl AST (15-37) U/L ALT (12-78) U/L Alkaline Phosphatase (45-117) U/L Total Protein (6.4-8.2) gm/dl Albumin (3.4-5.0) gm/dl Globulin (2.5-4.0) gm/dl Albumin/Globulin Ratio (0.9-2) Prostate Specific Ag (0-4) ng/ml Urine Color Urine Appearance (Clear) Urine pH (4.5-7.5) Ur Specific [place] (1.000-1.060) Urine Protein (Negative) Urine Glucose (UA) (Negative) Urine Ketones (Negative) Urine Blood (Negative) Urine Nitrite (Negative) Urine Bilirubin (Negative) Urine Urobilinogen (Negative) Ur Leukocyte Esterase (Negative) Urine RBC (0-4) /hpf Urine WBC (0-5) /hpf Ur Epithelial Cells (0-5) /lpf Urine Bacteria (Negative) COVID-19 [facility] SARS-[facility]-2, RNA, NAAT NEGATIVE (NEGATIVE) 10/04/20 10/04/20 10/04/20 Range/Units 15:48 15:48 15:48 WBC (4.8-10.8) K/uL RBC (4.7-6.1) M/uL Hgb (14.0-18.0) g/dL Hct (42-52) % MCV (80-100) fL MCH (25-34) pg MCHC (32-36) g/dL RDW Std Deviation (36.4-46.3) fL RDW Coeff of Katherine (11.5-14.5) % Plt Count (130-400) K/uL MPV (7.4-10.4) fL Immature Gran % (Auto) % Neut % (Auto) % Lymph % (Auto) % Bethel % (Auto) % Eos % (Auto) % Baso % (Auto) % Neut # (Auto) (1.4-6.5) K/uL Lymph # (Auto) (1.2-3.4) K/uL Bethel # (Auto) (0.11-0.59) K/uL Eos # (Auto) (0-0.5) K/uL Baso # (Auto) (0-0.2) K/uL Immature Gran # (Auto) (0.00-0.02) K/uL PT 9.9 (9.0-12.0) Seconds INR 0.9 (0.9-1.1) APTT 29.9 (21.0-31.0) Seconds PTT Ratio 1.1 Sodium 135 L (136-145) mmol/L Potassium 4.5 (3.5-5.1) mmol/L Chloride 103 (98-107) mmol/L Carbon Dioxide 25 (21-32) mmol/L Anion Gap 7.0 (3-11) BUN 53 H (7-18) mg/dl Creatinine 2.19 H (0.6-1.4) mg/dl Est Cr Clr Drug Dosing 38.4 ml/min Est GFR ( Amer) 32.9 Est GFR (Non-Af Amer) 28.4 BUN/Creatinine Ratio 24.0 H (10-20) Glucose 106 H (70-99) mg/dl Calcium 9.6 (8.5-10.1) mg/dl Total Bilirubin 0.3 (0.2-1) mg/dl Direct Bilirubin 0.2 (0-0.2) mg/dl AST 28 (15-37) U/L ALT 37 (12-78) U/L Alkaline Phosphatase 95 (45-117) U/L Total Protein 7.5 (6.4-8.2) gm/dl Albumin 4.0 (3.4-5.0) gm/dl Globulin 3.5 (2.5-4.0) gm/dl Albumin/Globulin Ratio 1.2 (0.9-2) Prostate Specific Ag (0-4) ng/ml Urine Color Red Urine Appearance Cloudy A (Clear) Urine pH (4.5-7.5) Ur Specific [place] 1.012 (1.000-1.060) Urine Protein Positive H (Negative) Urine Glucose (UA) (Negative) Urine Ketones (Negative) Urine Blood (Negative) Urine Nitrite (Negative) Urine Bilirubin (Negative) Urine Urobilinogen (Negative) Ur Leukocyte Esterase (Negative) Urine RBC >30 H (0-4) /hpf Urine WBC 10-30 H (0-5) /hpf Ur Epithelial Cells 10-20 H (0-5) /lpf Urine Bacteria 1+ H (Negative) COVID-19 Eval Order SARS-CoV-2, RNA, NAAT (NEGATIVE) 10/04/20 Range/Units 15:48 WBC 11.90 H (4.8-10.8) K/uL RBC 4.60 L (4.7-6.1) M/uL Hgb 14.5 (14.0-18.0) g/dL Hct 42.0 (42-52) % MCV 91.3 (80-100) fL MCH 31.5 (25-34) pg MCHC 34.5 (32-36) g/dL RDW Std Deviation 44.2 (36.4-46.3) fL RDW Coeff of Katherine 13.3 (11.5-14.5) % Plt Count 288 (130-400) K/uL MPV 10.3 (7.4-10.4) fL Immature Gran % (Auto) 0.7 % Neut % (Auto) 62.2 % Lymph % (Auto) 27.3 % Bethel % (Auto) 8.1 % Eos % (Auto) 1.3 % Baso % (Auto) 0.4 % Neut # (Auto) 7.40 H (1.4-6.5) K/uL Lymph # (Auto) 3.25 (1.2-3.4) K/uL Bethel # (Auto) 0.96 H (0.11-0.59) K/uL Eos # (Auto) 0.16 (0-0.5) K/uL Baso # (Auto) 0.05 (0-0.2) K/uL Immature Gran # (Auto) 0.08 H (0.00-0.02) K/uL PT (9.0-12.0) Seconds INR (0.9-1.1) APTT (21.0-31.0) Seconds PTT Ratio Sodium (136-145) mmol/L Potassium (3.5-5.1) mmol/L Chloride (98-107) mmol/L Carbon Dioxide (21-32) mmol/L Anion Gap (3-11) BUN (7-18) mg/dl Creatinine (0.6-1.4) mg/dl Est Cr Clr Drug Dosing ml/min Est GFR ( Amer) Est GFR (Non-Af Amer) BUN/Creatinine Ratio (10-20) Glucose (70-99) mg/dl Calcium (8.5-10.1) mg/dl Total Bilirubin (0.2-1) mg/dl Direct Bilirubin (0-0.2) mg/dl AST (15-37) U/L ALT (12-78) U/L Alkaline Phosphatase (45-117) U/L Total Protein (6.4-8.2) gm/dl Albumin (3.4-5.0) gm/dl Globulin (2.5-4.0) gm/dl Albumin/Globulin Ratio (0.9-2) Prostate Specific Ag (0-4) ng/ml Urine Color Urine Appearance (Clear) Urine pH (4.5-7.5) Ur Specific [place] (1.000-1.060) Urine Protein (Negative) Urine Glucose (UA) (Negative) Urine Ketones (Negative) Urine Blood (Negative) Urine Nitrite (Negative) Urine Bilirubin (Negative) Urine Urobilinogen (Negative) Ur Leukocyte Esterase (Negative) Urine RBC (0-4) /hpf Urine WBC (0-5) /hpf Ur Epithelial Cells (0-5) /lpf Urine Bacteria (Negative) COVID-19 Eval Order SARS-CoV-2, RNA, NAAT (NEGATIVE) PG Care Time/CCT Total # of Minutes Spent Total Time Spent with Patient: Total time spent is greater than 50% in coordination of care (as documented) at patient's floor/unit and/or counseling patient: Coding Level of Care Code 61814 Subseq Hosp Care Lvl 2 Diagnoses Gross hematuria R31.0 Self-catheterizes urinary bladder Z78.9 Pulmonary embolism I26.99 CKD (chronic kidney disease) stage 3, GFR 30-59 ml/min N18.30 Hypertension I10 Renal cell carcinoma C64.9 BPH loc w urin obs/LUTS N40.1 COPD (chronic obstructive pulmonary disease) J44.9 CHF (congestive heart failure) I50.9 Osteoarthritis M19.90 Gout M10.9
[2020-10-05] MEDS: METOPROLOL TARTRATE 50 MG TAB PO SCH ×2 (09:37→20:30)
--- NOTE | 2020-10-05 09:59 | Urology Consultation ---
Date of Consultation October 05, 2020 Assessment & Plan (1) Gross hematuria: 74yo M presented to the ER with persistent gross hematuria since traumatic Ramirez catheterization during hospitalization at outside hospital on 09/28 through 10/01. -Reviewed plan of care with Dr. Cowan -Patient is afebrile -Labs reviewed, creatinine is improved today and hemoglobin stable -Continues to self catheterize w/o difficulty -He reports hematuria has improved today -Will need to keep urine sample for urology to visualize -Continue with bladder sa Supervising Physician Co-Signing Physician Notes The patient is confused . Initially thought surgery was on right kidney . Cannot reach . 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 Pt has been seen recently in [place] in the past year and has been doing cic w/o difficulty . Pt had traumatic catheterization in [facility] after being dxed with a pulmonary embolus . He was discharged and has had ongoing hematuria . Today the urine appeared consistent with old blood . Will consider placing ramirez for irrigation if not clearing . Pt allowed to eat . Ada weak transiently yesterday . No flank pain or obvious blood in r renal pelvis . Have requested old records from [facility]. History of Present Illness Reason for Consultation: hematuria Attending Physician: Steven Marvin MD History of Present Illness The patient is a 74-year-old Male with a PMHx including R partial nephrectomy, PE, BPH, COPD, CHF who presented to the ER with persistent gross hematuria since traumatic Ramirez catheterization during hospitalization at outside hospital on 09/28 through 10/01. Hematuria worsened in the setting of therapeutic Lovenox for newly diagnosed PE. Patient has been self catheterizing 3 times daily for several years. He was admitted for observation and conversion of Lovenox to heparin drip. He was on Cipro x 5-day course which he completed 10/04 for previous UTI. Urine culture results from outside hospital not available Urology consulted for evaluation of hematuria Chart review: Afebrile Wbc 11.27 Hgb 13.1 Cr 1.77 Urine culture- pending On IV heparin CT abd/pelvis- IMPRESSION: 1. No renal or ureteral calculi or obstructive uropathy. 2. 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 3. No large retroperitoneal hematoma. 4. No bowel obstruction or bowel wall thickening. Normal appendix. 5. Prior granulomatous disease. 6. Small hiatal hernia. Patient examined at bedside this AM. Awake, resting in bed on arrival. Has been NPO. Denies any back, flank, or suprapubic pain at this time. Denies fevers or chills. No nausea or vomiting. Patient continues to self-cath. He reports hematuria, but states it is improved since yesterday. Denies dysuria. He has been self-catheterizing for approx 1-2 years as he was having trouble emptying his bladder. He has previously followed with Urology in [place] and [place]. Hx of R partial nephrectomy. Denies hx of bladder or prostate cancers. Denies pertinent family hx. Unsure of last PSA or ASIYA. Not currently on any medications for voiding symptoms. Offers no additional complaints today. Allergies Allergy/AdvReac Type Severity Reaction Status Date / Time adhesive Allergy Unknown RASH Verified 10/04/20 21:12 morphine AdvReac Mild N/V Verified 10/04/20 21:12 Home Medications Medication Instructions Recorded Confirmed Type Glucosamine Boswella & D 1 tab PO BID 10/04/20 10/04/20 History allopurinol [Zyloprim] 100 mg PO QPM 10/04/20 10/04/20 History aspirin [Aspir-Low] 81 mg PO DAILY 10/04/20 10/04/20 History betamethasone, augmented 1 applic TOPICAL BID 10/04/20 10/04/20 History celecoxib [Celebrex] 200 mg PO BID PRN 10/04/20 10/04/20 History cinnamon bark [Cinnamon] 500 mg PO DAILY 10/04/20 10/04/20 History diclofenac sodium 2 g TOPICAL TID PRN 10/04/20 10/04/20 History fluticasone propion-salmeterol 1 ea INHALATION BID 10/04/20 10/04/20 History [Advair Diskus] furosemide [Lasix] 20 mg PO DAILY 10/04/20 10/04/20 History hydrochlorothiazide 25 mg PO DAILY 10/04/20 10/04/20 History lisinopril 20 mg PO QPM 10/04/20 10/04/20 History metoprolol tartrate 50 mg PO BID 10/04/20 10/04/20 History simvastatin 40 mg PO HS 10/04/20 10/04/20 History enoxaparin 100 mg SUBCUT HS 10/05/20 10/05/20 History enoxaparin 120 mg SUBCUT QAM 10/05/20 10/05/20 History Patient History Medical History BPH loc w urin obs/LUTS CHF (congestive heart failure) CKD (chronic kidney disease) stage 3, GFR 30-59 ml/min COPD (chronic obstructive pulmonary disease) DVT (deep venous thrombosis) Gout History of colon cancer Hypertension Osteoarthritis Pulmonary embolism Renal cell carcinoma Self-catheterizes urinary bladder Surgical History History of bilateral hip replacements History of colon resection History of mandibular surgery History of partial nephrectomy History of prostate surgery Family History Other Family history non-contributory Social History Smoking Status: Former smoker Tobacco Type: Cigarettes Age Quit Using Tobacco: 24; Hx Alcohol Use: No Hx Substance Use: No Preferred Language: Yoruba Communication Ability: Effective Supervisor Tunnel Heading Required: No Beliefs That Will Affect Care: None Current Living Situation: Spouse Other Information That Helps Us Care for You: No Feels Safe at Home: Yes Safety Concerns: Feels Safe At This Time Assistive Devices: Cane, Glasses and Hearing Aid - Bilateral Results & Data ([facility]) Vital Signs (Past 12 Hours) Vital Signs Temp Pulse Resp BP Pulse Ox 10/05/20 09:50 93 H 150/73 H 92 10/05/20 07:43 36.3 C L 83 16 149/71 H 94 10/04/20 22:49 36.6 C 97 H 18 148/70 H 96 PG Care Time/CCT Total # of Minutes Spent Total Time Spent with Patient: Total time spent is greater than 50% in coordination of care (as documented) at patient's floor/unit and/or counseling patient: Coding Level of Care Code 30007 Inpt Consult Level 3 Diagnoses Gross hematuria R31.0
[2020-10-05] MEDS: SODIUM CHLORIDE 0.9% 1000ML 1,000 ML IV SCH ×2 (11:39→23:46)
--- NOTE | 2020-10-05 11:55 | Electrocardiogram Report ---
Test Reason : Blood Pressure : / mmHG Vent. Rate : 088 BPM Atrial Rate : 088 BPM P-R Int : 178 ms QRS Dur : 152 ms QT Int : 378 ms P-R-T Axes : 055 003 012 degrees QTc Int : 457 ms Normal sinus rhythm Right bundle branch block Abnormal ECG When compared with ECG of 19-JUL-2005 13:13, Right bundle branch block is now Present Confirmed by Derian Dela Cruz ([id number]) on 10/05/2020 11:54:58 AM Referred By: REFERRED SELF Confirmed By:Derian Dela Cruz
[2020-10-05] MEDS ORDERED: METOPROLOL TARTRATE 25 MG TAB PO ONE (14:43)
[2020-10-05] MEDS: allopurinoL 100 MG TAB PO SCH (20:30)
[2020-10-05] MEDS: SIMVASTATIN 40 MG TAB PO SCH (20:30)
[2020-10-05] MEDS: TAMSULOSIN HCL 0.4 MG CAP PO SCH (20:32)
[2020-10-05] MEDS ORDERED: lisinopril 20 MG TAB PO SCH (21:00)
[2020-10-05] MEDS ORDERED: SODIUM CHLORIDE 0.65% NA SOLN 45 ML (OCEAN) ONE (23:44)
[2020-10-06] MEDS: HEPARIN SODIUM/DEXTROSE 25,000 UNITS/500 ML BAG IV SCH ×2 (05:34→11:19)
[2020-10-06] MEDS ORDERED: CIPROFLOXACIN / D5W 400 MG/200 ML BAG IV SCH (06:00)
[2020-10-06 08:19] LABS: Basophils # (auto) 0.04 K/uL (0-0.2); Basophils % (auto) 0.3 %; Eosinophils # (auto) 0.15 K/uL (0-0.5); Eosinophils % (auto) 1.3 %; Hematocrit (blood only) 34.5 % (42-52); Hemoglobin 11.7 g/dL (14.0-18.0); Immature Granulocytes # (auto) 0.05 K/uL (0.00-0.02); Immature Granulocytes % (auto) 0.4 %; Lymphocytes # (auto) 2.93 K/uL (1.2-3.4); Lymphocytes % (auto) 25.1 %; Mean Corpuscular Hemoglobin 31.7 pg (25-34); Mean Corpuscular Hgb Conc 33.9 g/dL (32-36); Mean Corpuscular Volume 93.5 fL (80-100); Mean Platelet Volume 10.4 fL (7.4-10.4); Monocytes # (auto) 0.83 K/uL (0.11-0.59); Monocytes % (auto) 7.1 %; Neutrophils # (auto) 7.68 K/uL (1.4-6.5); Neutrophils % (auto) 65.8 %; Platelet Count 222 K/uL (130-400); RDW Coefficient of Variation 13.3 % (11.5-14.5); RDW Standard Deviation 45.5 fL (36.4-46.3); Red Blood Count 3.69 M/uL (4.7-6.1); White Blood Count 11.68 K/uL (4.8-10.8)
--- NOTE | 2020-10-06 08:20 | Urology Progress Note ---
Date of Service October 06, 2020 Assessment & Plan (1) Gross hematuria: 74 yo M presented to the ER with persistent gross hematuria since traumatic Red catheterization during hospitalization at outside hospital on 09/28 through 10/01. - Reviewed plan of care with Dr. Kraft. - Patient is afebrile, hemoglobin decreased to 11.7 today, creatinine pending. - UC&S pending, continue abx and follow culture. - Red catheter draining michele bloody urine today - did not require manual irri gation overnight. - Findings reviewed with Dr. Kraft. Given his persistent hematuria and decreasing hemoglobin, will proceed with OR for cystoscopy, fulguration and evacuation of clot. - Risks and benefits to be reviewed with patient by Dr. Kraft. OR notified. Preoperative CXR and EKG on chart. COVID testing negative on 10/04/20. - Discussed surgical intervention today with his hospitalist, Dr. Marvin. Plan to hold Heparin gtt about 4 hours prior to surgery today and check preop PTT. - Will cover with IV Ciprofloxacin preoperatively. ATTENDING NOTE: Agree with above. Independently evaluated and assessed. Agree with [employer] GALVANIZER note. Plan to take for fulguration with cystoscopy. Risks and benefits discussed at length for procedure. These include bleeding, infection, injury to surrounding tissues or organs, and risks associated with anesthesia. Patient states understanding and agrees to proceed. Will sign consent and schedule. Admission and Anticipated Discharge Date Admission Date: October 04, 2020 Subjective Pt examined at bedside this AM. Awake, alert and lying in bed, appears comfortable. Offers no complaints at this time. No suprapubic, flank or abdominal pain. Tolerating Red catheter without bother. Red intact, patent, and draining michele bloody urine, no clots noted. Per chart review, Red did not require manual irrigation over night. No fever or chills. No nausea or vomiting. BM yesterday. NPO since midnight. Chart review: Hgb 11.7 (previously 13.1), WBC 11.68 (previously 11.27), creatinine pending, UC&S pending, last dose of IV Ceftriaxone yesterday. Review of Systems Constitutional: as per Subjective / HPI Gastrointestinal: as per Subjective / HPI Genitourinary: + as per Subjective / HPI Physical Exam Constitutional: well developed and well nourished; no acute distress and not ill appearing ENMT: Hard of hearing, bilateral hearing aids Respiratory: normal respiratory effort and able to speak in complete sentences; no respiratory distress and no labored breathing Cardiovascular: Extremities: no calf tenderness and no pedal edema Gastrointestinal (Abdomen): Inspection/Auscultation: abdomen normal to inspection; abdomen not distended Percussion/Palpation: abdomen soft; abdomen nontender and no guarding Musculoskeletal: Head/Neck/Chest: normocephalic and head atraumatic Extremities: extremities normal to inspection Skin: no rashes, warm and dry Neurologic: moves all extremities and awake Psychiatric: Orientation: alert, oriented x 3 and cooperative Genitourinary: no CVA tenderness Red intact, patent, draining michele bloody urine, no clots noted Results & Data ([facility]) Vital Signs (Past 12 Hours) Vital Signs Temp Pulse Pulse Resp BP BP Pulse Ox 10/06/20 07:56 37.0 C 82 18 113/66 97 10/05/20 23:20 37.1 C 73 18 107/63 96 10/05/20 20:28 80 142/68 H PG Care Time/CCT Total # of Minutes Spent Total Time Spent with Patient: Total time spent is greater than 50% in coordination of care (as documented) at patient's floor/unit and/or counseling patient: Coding Level of Care Code 78887 Subseq Hosp Care Lvl 3 Diagnoses Gross hematuria R31.0
[2020-10-06 08:53] LABS: BUN Creatinine Ratio 18.2 (10-20); Calcium 7.9 mg/dl (8.5-10.1); Est GFR (African American) 56.6; Est GFR (Non-African American) 48.8; Potassium 3.5 mmol/L (3.5-5.1)
[2020-10-06 09:01] LABS: Partial Thromboplastin Time > 139.0 Seconds (21.0-31.0)
[2020-10-06 09:06] LABS: Partial Thromboplastin Ratio > 5.0
[2020-10-06] MEDS: METOPROLOL TARTRATE 50 MG TAB PO SCH ×2 (09:21→21:33)
[2020-10-06] MEDS: FLUTICASONE/VILANTEROL 100/25MCG 14 PUFFS/INHALER INH SCH (09:25)
[2020-10-06] MEDS: BETAMETHASONE DIP AUG (DIPROLENE) 0.05% CR 15 GM TUBE EXT SCH ×2 (09:25→21:33)
[2020-10-06 10:23] LABS: Partial Thromboplastin Ratio 1.8
--- NOTE | 2020-10-06 10:28 | Hospitalist Progress Note ---
Date of Service October 06, 2020 Assessment & Plan (1) Gross hematuria: Presents with persistent gross hematuria since traumatic Red catheterization during hospitalization at outside hospital on 09/28 through 10/01. Worsened in the setting of therapeutic Lovenox for newly diagnosed PE. Fortunately, hemoglobin is stable and he is hemodynamically stable. He is able to pass some of his urine but has been self catheterizing 3 times daily for several years. Urinalysis here is quite bloody and is unable to be analyzed but does not show a significant amount of WBCs He was on Cipro times a 5-day course which is completed today for previous UTI. 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 Reports increased blood with st cath and plans for OR this afternoon with Urology * Cr 2.19 and has continued to improve with IVF --> 1.4 on BMP * Ordered Cipro for proph as cx with pin-point growth -- follow * NPO for OR this afternoon * Continue to monitor blood counts, chemistry Of note --> Operative report just scanned in with bleeding ulcerated lesions in bladder/prostatic urethra and bladder neck with bleeding varicosities and large amount of clot which was evacuated and resected. lesions fulgurated to control bleeding. (2) Self-catheterizes urinary bladder: * As noted above (3) Pulmonary embolism: * With second and third order PE found on outside CT angiogram the chest * The images from the CT from [facility] have been sent over to our PACS and hopefully will be read by radiologist as well * Dopplers NEGATIVE for DVT * He does have a history of previous left lower extremity DVT 20 years ago and perhaps this is the provoking factor * He also has a history of renal cell carcinoma as well as colon cancer * Hold Lovenox for now-Lovenox was being dosed at 1 mg per kg in the setting of elevated creatinine and perhaps this was too high of a dose * Heparin gtt as above -- on hold for OR and to be resumed following if bleeding controlled * Could likely d/c on Eliquis once hematuria improved (4) CKD (chronic kidney disease) stage 3, GFR 30-59 ml/min: * Creatinine 2.1 here which is up slightly from outside records showing creatinine 1.9 on 09/26 * Unclear what his baseline is * Hold home Lasix, hydrochlorothiazide, and lisinopril for now-he did not take them today * Hydrating with normal saline * Cr improved to 1.4 * IVF as above * BMP in AM He has been self catheterizing at home but could perhaps still have a postobstructive picture As long as able to drain bladder, no need for Red catheter placement He did have a renal and bladder ultrasound at the outside hospital which has also been scanned into our PACS system and could be read by a radiologist in the morning (5) Hypertension: * Blood pressures mildly elevated but now improved -- 137/72 * Holding home lisinopril, HCTZ, and Lasix as above for LEATHA as above * Continue metoprolol and increase dose if needed * Continue to monitor (6) Renal cell carcinoma: * As above * Status post partial nephrectomy on the right (7) BPH loc w urin obs/LUTS: * As above, status post TURP and self catheterizes 3 times daily * It appears he previously was on tamsulosin but this was not on his home medication reconciliation at this time and this was resumed (8) COPD (chronic obstructive pulmonary disease): * No acute issues * Continue home Breo (9) CHF (congestive heart failure): * Mentioned as per history, unclear if diastolic or systolic * Reduced fluids for slight wheezing on examination * Holding diuretics as above * Follow daily weights, I's and O's * Continue to monitor (10) Osteoarthritis: * Avoid Celebrex in the setting of chronic kidney disease * Tylenol as needed is okay * He also uses diclofenac topically which is okay (11) Gout: * No acute issues * Continue home allopurinol DVT prophylaxis-Heparin drip as above, with pre-existing PE Disposition- OR this afternoon possible discharge tomorrow on Eliquis if hematuria resolved Admission and Anticipated Discharge Date Admission Date: October 04, 2020 Subjective Patient evaluated this morning. Feeling generally well but reports fatigue. Plans for OR later this afternoon with Urology but will need to have Heparin gtt held. States catheterization with slightly more blood today than yesterday. No fever, chills, chest pain, shortness of breath, abdominal pain, nausea or vomiting at this time. Review of Systems Review of Systems: All systems reviewed & are unremarkable except as noted in HPI & below Physical Exam Constitutional: well developed, well nourished and + obese; no acute distress and not ill appearing Eyes: + anicteric sclerae and PERRL ENMT: Mouth: no TMJ abnormality Mallampati Class: II hearing aides in place bilaterally Neck: normal visual inspection Respiratory: normal respiratory effort and able to speak in complete sentences; no respiratory distress and no labored breathing Auscultation: lungs clear to auscultation bilaterally and + wheezes (expiratory L posterior lung field,) Cardiovascular: Rate/Rhythm: regular rate and regular rhythm Extremities: no calf tenderness and no pedal edema Gastrointestinal (Abdomen): Inspection/Auscultation: abdomen normal to inspection and normal bowel sounds; abdomen not distended Percussion/Palpation: abdomen soft; abdomen nontender, no guarding and abdomen not rigid Musculoskeletal: Head/Neck/Chest: normocephalic and head atraumatic Extremities: extremities normal to inspection; no cyanosis and no clubbing Skin: warm, dry Neurologic: moves all extremities and awake; no focal motor deficits Psychiatric: Orientation: alert, oriented x 3 and cooperative Genitourinary: no testicular masses, no penis abnormality (No discharge from the meatus) no CVA tenderness Lymphatic: no lymphedema Results & Data Results & Data ([facility]) Vital Signs (Past 12 Hours) Vital Signs Temp Pulse Resp BP BP Pulse Ox 10/06/20 07:56 37.0 C 82 18 113/66 97 10/05/20 23:20 37.1 C 73 18 107/63 96 Laboratory Results 10/06/20 10/06/20 10/06/20 Range/Units 09:48 09:48 07:33 WBC (4.8-10.8) K/uL RBC (4.7-6.1) M/uL Hgb (14.0-18.0) g/dL Hct (42-52) % MCV (80-100) fL MCH (25-34) pg MCHC (32-36) g/dL RDW Std Deviation (36.4-46.3) fL RDW Coeff of Katherine (11.5-14.5) % Plt Count (130-400) K/uL MPV (7.4-10.4) fL Immature Gran % (Auto) % Neut % (Auto) % Lymph % (Auto) % [place] % (Auto) % Eos % (Auto) % Baso % (Auto) % Neut # (Auto) (1.4-6.5) K/uL Lymph # (Auto) (1.2-3.4) K/uL [place] # (Auto) (0.11-0.59) K/uL Eos # (Auto) (0-0.5) K/uL Baso # (Auto) (0-0.2) K/uL Immature Gran # (Auto) (0.00-0.02) K/uL APTT 51.0 H* (21.0-31.0) Seconds PTT Ratio 1.8 Sodium 139 (136-145) mmol/L Potassium 3.5 (3.5-5.1) mmol/L Chloride 109 H (98-107) mmol/L Carbon Dioxide 23 (21-32) mmol/L Anion Gap 7.0 (3-11) BUN 26 H (7-18) mg/dl Creatinine 1.40 D (0.6-1.4) mg/dl Est Cr Clr Drug Dosing 59.0 ml/min Est GFR ( Amer) 56.6 Est GFR (Non-Af Amer) 48.8 BUN/Creatinine Ratio 18.2 (10-20) Glucose 179 H (70-99) mg/dl Calcium 7.9 L (8.5-10.1) mg/dl Albumin 3.2 L (3.4-5.0) gm/dl 10/06/20 10/06/20 Range/Units 07:33 07:33 WBC 11.68 H (4.8-10.8) K/uL RBC 3.69 L (4.7-6.1) M/uL Hgb 11.7 L (14.0-18.0) g/dL Hct 34.5 L (42-52) % MCV 93.5 (80-100) fL MCH 31.7 (25-34) pg MCHC 33.9 (32-36) g/dL RDW Std Deviation 45.5 (36.4-46.3) fL RDW Coeff of Katherine 13.3 (11.5-14.5) % Plt Count 222 (130-400) K/uL MPV 10.4 (7.4-10.4) fL Immature Gran % (Auto) 0.4 % Neut % (Auto) 65.8 % Lymph % (Auto) 25.1 % [place] % (Auto) 7.1 % Eos % (Auto) 1.3 % Baso % (Auto) 0.3 % Neut # (Auto) 7.68 H (1.4-6.5) K/uL Lymph # (Auto) 2.93 (1.2-3.4) K/uL [place] # (Auto) 0.83 H (0.11-0.59) K/uL Eos # (Auto) 0.15 (0-0.5) K/uL Baso # (Auto) 0.04 (0-0.2) K/uL Immature Gran # (Auto) 0.05 H (0.00-0.02) K/uL APTT > 139.0 H* (21.0-31.0) Seconds PTT Ratio > 5.0 Sodium (136-145) mmol/L Potassium (3.5-5.1) mmol/L Chloride (98-107) mmol/L Carbon Dioxide (21-32) mmol/L Anion Gap (3-11) BUN (7-18) mg/dl Creatinine (0.6-1.4) mg/dl Est Cr Clr Drug Dosing ml/min Est GFR ( Amer) Est GFR (Non-Af Amer) BUN/Creatinine Ratio (10-20) Glucose (70-99) mg/dl Calcium (8.5-10.1) mg/dl Albumin (3.4-5.0) gm/dl PG Care Time/CCT Total # of Minutes Spent Total Time Spent with Patient: Total time spent is greater than 50% in coordination of care (as documented) at patient's floor/unit and/or counseling patient: Coding Level of Care Code 43238 Subseq Hosp Care Lvl 2 Diagnoses Gross hematuria R31.0 Self-catheterizes urinary bladder Z78.9 Pulmonary embolism I26.99 CKD (chronic kidney disease) stage 3, GFR 30-59 ml/min N18.30 Hypertension I10 Renal cell carcinoma C64.9 BPH loc w urin obs/LUTS N40.1 COPD (chronic obstructive pulmonary disease) J44.9 CHF (congestive heart failure) I50.9 Osteoarthritis M19.90 Gout M10.9
[2020-10-06] MEDS: SODIUM CHLORIDE 0.9% 1000ML 1,000 ML IV SCH (12:36)
--- NOTE | 2020-10-06 13:59 | Anesthesiology Consultation ---
Date of Service October 06, 2020 Assessment & Plan Chart Review Chart Review: Acceptable Risk for Surgery Consults Requested none History Surgery Operation Date: 10/06/20 14:40 Proposed Procedures p Cystoscopy, Fulguration, Clot Evacuation - Girish Kraft, Height/Weight Height: 6 ft 1 in Weight: 108.7 kg Allergies Allergy/AdvReac Type Severity Reaction Status Date / Time adhesive Allergy Unknown RASH Verified 10/04/20 21:12 morphine AdvReac Mild N/V Verified 10/04/20 21:12 Medications Home Medications Medication Instructions Recorded Confirmed Last Taken Glucosamine Boswella & D 1 tab PO BID 10/04/20 10/04/20 Unknown allopurinol [Zyloprim] 100 mg PO QPM 10/04/20 10/04/20 Unknown aspirin [Aspir-Low] 81 mg PO DAILY 10/04/20 10/04/20 Unknown betamethasone, augmented 1 applic TOPICAL BID 10/04/20 10/04/20 Unknown celecoxib [Celebrex] 200 mg PO BID PRN 10/04/20 10/04/20 Unknown cinnamon bark [Cinnamon] 500 mg PO DAILY 10/04/20 10/04/20 Unknown diclofenac sodium 2 g TOPICAL TID PRN 10/04/20 10/04/20 Unknown fluticasone propion-salmeterol 1 ea INHALATION BID 10/04/20 10/04/20 Unknown [Advair Diskus] furosemide [Lasix] 20 mg PO DAILY 10/04/20 10/04/20 10/04/20 09:00 hydrochlorothiazide 25 mg PO DAILY 10/04/20 10/04/20 Unknown lisinopril 20 mg PO QPM 10/04/20 10/04/20 Unknown metoprolol tartrate 50 mg PO BID 10/04/20 10/04/20 Unknown simvastatin 40 mg PO HS 10/04/20 10/04/20 Unknown enoxaparin 100 mg SUBCUT HS 10/05/20 10/05/20 10/03/20 21:00 enoxaparin 120 mg SUBCUT QAM 10/05/20 10/05/20 10/03/20 09:00 Active Medications Generic Name Dose Route Start Last Admin Trade Name Freq PRN Reason Stop Dose Admin Allopurinol 100 mg 10/05/20 21:00 10/05/20 20:30 Allopurinol 100 Mg Tab PO 11/04/20 20:59 100 mg QPM SHANT Administration Betamethasone Dipropion Augmented 1 appln 10/05/20 09:00 10/06/20 09:25 Betamethasone Dip Aug (Diprolene) 0.05% Cr 15 Gm Tube EXT 11/04/20 08:59 1 appln BID SHANT Administration Fluticasone/Vilanterol 1 puffs 10/05/20 09:00 10/06/20 09:25 Fluticasone/Vilanterol 100/25mcg 14 Puffs/Inhaler INH 11/04/20 08:59 1 puffs DAILY SHANT Administration Heparin Sodium/Dextrose 25,000 units in 500 mls @ 0 mls/hr 10/04/20 21:00 10/06/20 11:19 Heparin Sodium/Dextrose IV 11/03/20 20:59 Not Given .Q0M SHANT Protocol 0 UNITS/HR Sodium Chloride 1,000 mls @ 60 mls/hr 10/04/20 21:00 10/06/20 12:36 Nss 1000ml IV 11/03/20 20:59 60 mls/hr .[id number] SHANT Administration Metoprolol Tartrate 50 mg 10/05/20 09:00 10/06/20 09:21 Metoprolol Tartrate 50 Mg Tab PO 11/04/20 08:59 Not Given BID SHANT Simvastatin 40 mg 10/05/20 21:00 10/05/20 20:30 Simvastatin 40 Mg Tab PO 11/04/20 20:59 40 mg HS SHANT Administration Tamsulosin HCl 0.4 mg 10/05/20 21:00 10/05/20 20:32 Tamsulosin Hcl 0.4 Mg Cap PO 11/04/20 20:59 0.4 mg HS SHANT Administration NPO Date Last Intake of Fluids: 10/05/20 Time Last Intake of Fluids: 20:00 Date Last Intake of Solids: 10/05/20 Time Last Intake of Solids: 17:00 Past Medical History Medical History BPH loc w urin obs/LUTS CHF (congestive heart failure) CKD (chronic kidney disease) stage 3, GFR 30-59 ml/min COPD (chronic obstructive pulmonary disease) DVT (deep venous thrombosis) Gout History of colon cancer Hypertension Osteoarthritis Pulmonary embolism Renal cell carcinoma Self-catheterizes urinary bladder Past Family History Family History Other Family history non-contributory Past Surgical History Surgical History History of bilateral hip replacements History of colon resection History of mandibular surgery History of partial nephrectomy History of prostate surgery Social History Smoking Status: Former smoker Hx Alcohol Use: No alcohol intake frequency: holidays/special occasions only Hx Substance Use: No substance use type: does not use Physical Exam Vital Signs Last Vital Signs Temp 37 C 10/06/20 13:10 Pulse 103 H 10/06/20 13:10 Resp 20 10/06/20 13:10 BP 139/72 10/06/20 13:10 Pulse Ox 95 10/06/20 13:10 Testing Laboratory Results 10/06/20 07:33 10/06/20 07:33 PT 10.3 Seconds (9.0-12.0) 10/04/20 23:26 INR 1.0 (0.9-1.1) 10/04/20 23:26 APTT 51.0 Seconds (21.0-31.0) H* 10/06/20 09:48 Urine Color Red 10/04/20 15:48 Urine Appearance Cloudy (Clear) A 10/04/20 15:48 Urine pH (4.5-7.5) 10/04/20 15:48 Ur Specific [employer] 1.012 (1.000-1.060) 10/04/20 15:48 Urine Protein Positive (Negative) H 10/04/20 15:48 Urine Glucose (UA) (Negative) 10/04/20 15:48 Urine Ketones (Negative) 10/04/20 15:48 Urine Nitrite (Negative) 10/04/20 15:48 Ur Leukocyte Esterase (Negative) 10/04/20 15:48 Urine RBC >30 /hpf (0-4) H 10/04/20 15:48 Urine WBC 10-30 /hpf (0-5) H 10/04/20 15:48 Ur Epithelial Cells 10-20 /lpf (0-5) H 10/04/20 15:48 10/04/20 15:48 Urine Culture - Preliminary Urine,Clean Catch Gram negative bacilli
[2020-10-06] MEDS ORDERED: BELLADONNA/OPIUM SUPP 60 MG SUPP PR ONE ×2 (15:43→15:45)
--- NOTE | 2020-10-06 15:58 | Operative Report ---
PG Post Operative Report Pre & Post Diagnosis Operation Date: 10/06/20 14:40 Pre-Op Diagnosis: HEMATURIA Post-Op Diagnosis: HEMATURIA I identified the patient and participated in the time-out.: Yes Procedure Operation Date: 10/06/20 14:40 Actual Procedures p Cystoscopy, Fulguration of Bladder, Fulguration of Prostate Varicosities, Clot Evacuation - Girish Kraft DO Surgeon Girish Kraft, II, DO [employer] None Estimated Blood Loss 10 Findings Consistent with Post-Op Diagnosis Multiple ulcerated bleeding areas of bladder. Large prostatic varicosity bleeding on presentation. Specimens None Drains [address] connected to CBI Anesthesia Type MAC Complications none Disposition Disposition: Recovery Room Indications Patient with gross hematuria. Risks and benefits discussed at length. Description of Procedure Patient was consented and brought back to the operating room. Patient was placed under anesthesia in the supine position and moved to the dorsal lithotomy position. Patient was prepped and draped in the regular sterile fashion. A time out was completed. A 30degree Cystoscope was placed into the bladder and the entire bladder was examined. The UO's were identified as well as the bladder neck, trigone, dome, and the other important landmarks. The bleeding ulcerated lesions and areas of concern were identified and area/size was assessed. The prostatic urethra and bladder neck had multiple bleeding varicosities. A large amount of clot was evacuated from the bladder by irrigating through the scope with a Tomey Syringe. The resection scope with the fine bipolar loop was selected. The entire lesion was assessed. The lesions of the bladder were fulgurated and the edges of the lesions were fulgurated and the entire area inspected. The bladder neck and prostatic urethra were also fulgurated to control bleeding. All bleeding was controlled. The bladder was inspected a final time. The bladder was emptied. The scope was removed. A [address] catheter was placed and set to drainage with Continuous bladder irrigation. The patient was cleaned, aroused from anesthesia, and transferred to the pacu in stable condition having tolerated the procedure well with no complications. I was present and participated in all aspects of the procedure. The patient will be monitored in the PACU until transferred. I attest to the content of the Intraoperative Record and any orders documented therein. Any exceptions are noted below.
[2020-10-06] MEDS ORDERED: PROPOFOL IV EMULSION 10 MG/ML 20 ML VIAL IV ONE (16:10)
--- NOTE | 2020-10-06 16:19 | Anesthesiology Progress Note ---
Date of Service October 06, 2020 Anesthesia Post Procedure Vital Signs Vital Signs: Temp Pulse Pulse Resp BP BP Pulse Ox 10/06/20 13:10 37 C 103 H 20 139/72 95 10/06/20 07:56 37.0 C 82 18 113/66 97 10/05/20 23:20 37.1 C 73 18 107/63 96 10/05/20 20:28 80 142/68 H Transfer of Care Handoff Completed per policy Notes Mental Status: alert / awake / arousable and participated in evaluation Patient Amnestic to Procedure: Yes Nausea / Vomiting: adequately controlled Pain: adequately controlled Airway Patency, RR, SpO2: stable & adequate BP & HR: stable & adequate Hydration State: stable & adequate Anesthetic Complications: no major complications apparent
[2020-10-06] MEDS ORDERED: ATROPINE SULFATE 0.1 MG/ML 10ML SYR IV PRN (16:29)
[2020-10-06] MEDS ORDERED: fentaNYL citrate 100 MCG/2 ML VIAL IV PRN (16:29)
[2020-10-06] MEDS ORDERED: ePHEDrine sulfate 50 MG/ML AMP IV PRN (16:29)
[2020-10-06] MEDS ORDERED: fentaNYL citrate 100 MCG/2 ML VIAL ONE (16:33)
[2020-10-06] MEDS ORDERED: Nursing to Pharmacy Communication SCH (18:00)
[2020-10-06] MEDS: ACETAMINOPHEN 325 MG TAB PO PRN (19:01)
[2020-10-06 19:50] LABS: Partial Thromboplastin Ratio 1.4
[2020-10-06] MEDS: allopurinoL 100 MG TAB PO SCH (21:33)
[2020-10-06] MEDS: TAMSULOSIN HCL 0.4 MG CAP PO SCH (21:33)
[2020-10-06] MEDS: SIMVASTATIN 40 MG TAB PO SCH (21:33)
[2020-10-07 02:44] LABS: Partial Thromboplastin Ratio 2.3
[2020-10-07 02:53] LABS: Partial Thromboplastin Time 64.1 Seconds (21.0-31.0)
[2020-10-07] MEDS: ACETAMINOPHEN 325 MG TAB PO PRN (03:07)
[2020-10-07] MEDS: HEPARIN SODIUM/DEXTROSE 25,000 UNITS/500 ML BAG IV SCH ×2 (05:25→20:46)
[2020-10-07] MEDS: CIPROFLOXACIN 500 MG TAB PO SCH ×2 (05:38→18:47)
[2020-10-07 08:21] LABS: Basophils # (auto) 0.04 K/uL (0-0.2); Basophils % (auto) 0.3 %; Eosinophils # (auto) 0.18 K/uL (0-0.5); Eosinophils % (auto) 1.3 %; Hematocrit (blood only) 36.7 % (42-52); Hemoglobin 12.5 g/dL (14.0-18.0); Immature Granulocytes # (auto) 0.06 K/uL (0.00-0.02); Immature Granulocytes % (auto) 0.4 %; Lymphocytes # (auto) 3.24 K/uL (1.2-3.4); Lymphocytes % (auto) 23.7 %; Mean Corpuscular Hemoglobin 31.4 pg (25-34); Mean Corpuscular Hgb Conc 34.1 g/dL (32-36); Mean Corpuscular Volume 92.2 fL (80-100); Mean Platelet Volume 10.3 fL (7.4-10.4); Monocytes # (auto) 1.01 K/uL (0.11-0.59); Monocytes % (auto) 7.4 %; Neutrophils # (auto) 9.14 K/uL (1.4-6.5); Neutrophils % (auto) 66.9 %; Platelet Count 233 K/uL (130-400); RDW Coefficient of Variation 13.2 % (11.5-14.5); RDW Standard Deviation 44.2 fL (36.4-46.3); Red Blood Count 3.98 M/uL (4.7-6.1); White Blood Count 13.67 K/uL (4.8-10.8)
[2020-10-07 08:41] LABS: Partial Thromboplastin Ratio 2.6
[2020-10-07 08:44] LABS: Partial Thromboplastin Time 73.4 Seconds (21.0-31.0)
[2020-10-07 08:55] LABS: BUN Creatinine Ratio 13.9 (10-20); Calcium 9.1 mg/dl (8.5-10.1); Creatinine Clr Calc Pharmacy 53.9 ml/min; Est GFR (African American) 50.8; Est GFR (Non-African American) 43.8; Potassium 3.8 mmol/L (3.5-5.1)
[2020-10-07] MEDS: METOPROLOL TARTRATE 50 MG TAB PO SCH ×2 (09:03→20:42)
[2020-10-07] MEDS: FLUTICASONE/VILANTEROL 100/25MCG 14 PUFFS/INHALER INH SCH (09:03)
[2020-10-07] MEDS: BETAMETHASONE DIP AUG (DIPROLENE) 0.05% CR 15 GM TUBE EXT SCH ×2 (09:03→20:41)
--- NOTE | 2020-10-07 09:31 | Urology Progress Note ---
Date of Service October 07, 2020 Assessment & Plan (1) Gross hematuria: 74yo M admitted with gross hematuria -POD #1 s/p Cystoscopy, Fulguration of Bladder, Fulguration of Prostate Varicosities, Clot Evacuation with Dr. Kraft -Doing very well post procedure -Patient is afebrile -Labs reviewed, Wbc 13.67, hemoglobin improved to 12.5 today, creatinine 1.53 - Will continue to trend -UC&S pending, continue antibiotics and follow culture. -Continue Red catheter and continuous bladder irrigation -Encourage ambulation -Continue supportive care per primary team -Will continue to monitor Admission and Anticipated Discharge Date Admission Date: October 06, 2020 Subjective 74 yo M admitted with gross hematuria POD #1 s/p Cystoscopy, Fulguration of Bladder, Fulguration of Prostate Varicosities, Clot Evacuation with Dr. Kraft Pt examined at bedside this AM. Awake, alert and lying in bed, appears comfortable. Offers no complaints at this time. No suprapubic, flank or abdominal pain. Tolerating Red catheter/CBI without bother. Red intact, patent, and draining pink urine, no clots noted. No fever or chills. Tolerating diet, no nausea or vomiting. BM this morning. Chart review: Afebrile Wbc 13.67 Hgb 12.5 Cr 1.53 Urine culture - pending, on PO Cipro Continues on IV Heparin Review of Systems Constitutional: as per Subjective / HPI Gastrointestinal: as per Subjective / HPI Genitourinary: + as per Subjective / HPI Physical Exam Constitutional: no acute distress and not ill appearing Respiratory: normal respiratory effort and able to speak in complete sentences Cardiovascular: Extremities: no calf tenderness Gastrointestinal (Abdomen): Percussion/Palpation: abdomen soft; abdomen nontender and no guarding Skin: Warm and dry Neurologic: awake; not confused Psychiatric: Orientation: alert, oriented x 3 and cooperative Genitourinary: Red catheter intact with CBI, draining pink urine, no clots noted. Results & Data ([facility]) Vital Signs (Past 12 Hours) Vital Signs Temp Pulse Resp BP BP Pulse Ox 10/07/20 07:26 36.8 C 80 126/66 91 10/07/20 03:02 36.8 C 79 18 114/60 96 10/06/20 23:25 37.1 C 81 18 136/65 94 PG Care Time/CCT Total # of Minutes Spent Total Time Spent with Patient: Total time spent is greater than 50% in coordination of care (as documented) at patient's floor/unit and/or counseling patient: Coding Level of Care Code 36128 Subseq Hosp Care Lvl 2 Diagnoses Gross hematuria R31.0
--- NOTE | 2020-10-07 10:01 | Hospitalist Progress Note ---
Date of Service October 07, 2020 Assessment & Plan (1) Gross hematuria: Presents with persistent gross hematuria since traumatic Ramirez catheterization during hospitalization at outside hospital on 09/28 through 10/01. Worsened in the setting of therapeutic Lovenox for newly diagnosed PE. Fortunately, hemoglobin is stable and he is hemodynamically stable. He is able to pass some of his urine but has been self catheterizing 3 times daily for several years. Urinalysis here is quite bloody and is unable to be analyzed but does not show a significant amount of WBCs He was on Cipro times a 5-day course which is completed today for previous UTI. Urine culture results from outside hospital not available * Conversion of Lovenox to heparin drip in case of need for worsening hematuria * p Cystoscopy, Fulguration of Bladder, Fulguration of Prostate Varicosities, Clot Evacuation by Girish Kraft on 10/07 * CBI at this time per urology * Will hold off on switching to Eliquis for today after confirming with Urology and plan to transition tomorrow with possible d/c if h/h remains stable and hematuria resolving * PSA 2.510 * IVF discontinued yesterday for wheezing on examination and placed on additional 500cc total today for slight bump in Cr 1.53 from 1.4 (although outpt records with Cr 1.9, unclear baseline) * Follow urine culture -- gram negative bacilli and previously on cipro to be continued for now * CBC improved to 12.5/36.7 (2) Self-catheterizes urinary bladder: * As noted above (3) Pulmonary embolism: * With second and third order PE found on outside CT angiogram the chest * The images from the [facility] have been sent over to our PACS and hopefully will be read by radiologist as well * Dopplers NEGATIVE for DVT * He does have a history of previous left lower extremity DVT 20 years ago and perhaps this is the provoking factor * He also has a history of renal cell carcinoma as well as colon cancer * Hold Lovenox for now-Lovenox was being dosed at 1 mg per kg in the setting of elevated creatinine and perhaps this was too high of a dose * Heparin gtt as above -- plan to transition to Eliquis tomorrow if stable (4) CKD (chronic kidney disease) stage 3, GFR 30-59 ml/min: * Creatinine 2.1 here which is up slightly from outside records showing creatinine 1.9 on 09/26 * Unclear what his baseline is * Hold home Lasix, hydrochlorothiazide, and lisinopril for now-he did not take them today * Hydrating with normal saline as above for Cr 1.53 from 1.4 * BMP in AM (5) Hypertension: * Blood pressures mildly elevated but now improved -- 118/68 * Holding home lisinopril, HCTZ, and Lasix as above for LEATHA as above * Continue metoprolol and increase dose if needed * Continue to monitor (6) Renal cell carcinoma: * As above * Status post partial nephrectomy on the right (7) BPH loc w urin obs/LUTS: * As above, status post TURP and self catheterizes 3 times daily * It appears he previously was on tamsulosin but this was not on his home medication reconciliation at this time and this was resumed (8) COPD (chronic obstructive pulmonary disease): * No acute issues * Continue home Breo (9) CHF (congestive heart failure): * Mentioned as per history, unclear if diastolic or systolic * Slightly dry, 500cc as above * Holding diuretics as above * Weights, I&Os * Continue to monitor (10) Osteoarthritis: * Avoid Celebrex in the setting of chronic kidney disease * Tylenol as needed is okay * He also uses diclofenac topically which is okay (11) Gout: * No acute issues * Continue home allopurinol DVT prophylaxis- * Heparin drip as above, with pre-existing PE * To transition to Eliquis tomorrow Disposition- possible discharge tomorrow on Eliquis if hematuria resolved Admission and Anticipated Discharge Date Admission Date: October 06, 2020 Subjective Patient evaluated this morning. Feeling much better. Urine slightly manager inventory control and no evidence of clots in ramirez bag. Discussed transition to Eliquis prior to d/c but will continue on heparin after discussion with Urology and plans for transition tomorrow. Shortness of breath is at baseline since PE, not better or worse. Discussed improvement of h/h and operative findings. No fever, chills, chest pain, abdominal pain, nausea or vomiting at this time. Has been utilizing incentive spirometer this morning and no longer with wheezing on examination. Will continue to monitor overnight and possible discharge tomorrow and [facility] Review of Systems Review of Systems: All systems reviewed & are unremarkable except as noted in HPI & below Physical Exam Constitutional: well developed, well nourished and + obese; no acute distress and not ill appearing Eyes: + anicteric sclerae and PERRL ENMT: b/l hearing aides Neck: normal visual inspection Respiratory: normal respiratory effort and able to speak in complete sentences; no respiratory distress and no labored breathing Auscultation: lungs clear to auscultation bilaterally; no wheezes Cardiovascular: Rate/Rhythm: regular rate and regular rhythm Extremities: no calf tenderness and no pedal edema Gastrointestinal (Abdomen): Inspection/Auscultation: abdomen normal to inspection and normal bowel sounds; abdomen not distended Percussion/Palpation: abdomen soft; abdomen nontender, no guarding and abdomen not rigid Musculoskeletal: Head/Neck/Chest: normocephalic and head atraumatic Extremities: extremities normal to inspection; no cyanosis and no clubbing Neurologic: moves all extremities and awake; no focal motor deficits Psychiatric: Orientation: alert, oriented x 3 and cooperative Genitourinary: no CVA tenderness ramirez draining light pink tinged urine Lymphatic: no lymphedema Results & Data Results & [facility] ([facility]) Vital Signs (Past 12 Hours) Vital Signs Temp Pulse Resp BP BP Pulse Ox 10/07/20 07:26 36.8 C 80 126/66 91 10/07/20 03:02 36.8 C 79 18 114/60 96 10/06/20 23:25 37.1 C 81 18 136/65 94 Laboratory Results 10/07/20 10/07/20 10/07/20 Range/Units 07:27 07:27 07:27 WBC 13.67 H (4.8-10.8) K/uL RBC 3.98 L (4.7-6.1) M/uL Hgb 12.5 L (14.0-18.0) g/dL Hct 36.7 L (42-52) % MCV 92.2 (80-100) fL MCH 31.4 (25-34) pg MCHC 34.1 (32-36) g/dL RDW Std Deviation 44.2 (36.4-46.3) fL RDW Coeff of Katherine 13.2 (11.5-14.5) % Plt Count 233 (130-400) K/uL MPV 10.3 (7.4-10.4) fL Immature Gran % (Auto) 0.4 % Neut % (Auto) 66.9 % Lymph % (Auto) 23.7 % [place] % (Auto) 7.4 % Eos % (Auto) 1.3 % Baso % (Auto) 0.3 % Neut # (Auto) 9.14 H (1.4-6.5) K/uL Lymph # (Auto) 3.24 (1.2-3.4) K/uL [place] # (Auto) 1.01 H (0.11-0.59) K/uL Eos # (Auto) 0.18 (0-0.5) K/uL Baso # (Auto) 0.04 (0-0.2) K/uL Immature Gran # (Auto) 0.06 H (0.00-0.02) K/uL APTT 73.4 H* (21.0-31.0) Seconds PTT Ratio 2.6 Sodium 137 (136-145) mmol/L Potassium 3.8 (3.5-5.1) mmol/L Chloride 107 (98-107) mmol/L Carbon Dioxide 24 (21-32) mmol/L Anion Gap 6.0 (3-11) BUN 21 H (7-18) mg/dl Creatinine 1.53 H (0.6-1.4) mg/dl Est Cr Clr Drug Dosing 53.9 ml/min Est GFR ( Amer) 50.8 Est GFR (Non-Af Amer) 43.8 BUN/Creatinine Ratio 13.9 (10-20) Glucose 95 (70-99) mg/dl Calcium 9.1 D (8.5-10.1) mg/dl Albumin (3.4-5.0) gm/dl 10/07/20 10/06/20 10/06/20 Range/Units 02:08 19:29 09:48 WBC (4.8-10.8) K/uL RBC (4.7-6.1) M/uL Hgb (14.0-18.0) g/dL Hct (42-52) % MCV (80-100) fL MCH (25-34) pg MCHC (32-36) g/dL RDW Std Deviation (36.4-46.3) fL RDW Coeff of Katherine (11.5-14.5) % Plt Count (130-400) K/uL MPV (7.4-10.4) fL Immature Gran % (Auto) % Neut % (Auto) % Lymph % (Auto) % [place] % (Auto) % Eos % (Auto) % Baso % (Auto) % Neut # (Auto) (1.4-6.5) K/uL Lymph # (Auto) (1.2-3.4) K/uL [place] # (Auto) (0.11-0.59) K/uL Eos # (Auto) (0-0.5) K/uL Baso # (Auto) (0-0.2) K/uL Immature Gran # (Auto) (0.00-0.02) K/uL APTT 64.1 H* 39.0 H (21.0-31.0) Seconds PTT Ratio 2.3 1.4 Sodium (136-145) mmol/L Potassium (3.5-5.1) mmol/L Chloride (98-107) mmol/L Carbon Dioxide (21-32) mmol/L Anion Gap (3-11) BUN (7-18) mg/dl Creatinine (0.6-1.4) mg/dl Est Cr Clr Drug Dosing ml/min Est GFR ( Amer) Est GFR (Non-Af Amer) BUN/Creatinine Ratio (10-20) Glucose (70-99) mg/dl Calcium (8.5-10.1) mg/dl Albumin 3.2 L (3.4-5.0) gm/dl 10/06/20 Range/Units 09:48 WBC (4.8-10.8) K/uL RBC (4.7-6.1) M/uL Hgb (14.0-18.0) g/dL Hct (42-52) % MCV (80-100) fL MCH (25-34) pg MCHC (32-36) g/dL RDW Std Deviation (36.4-46.3) fL RDW Coeff of Katherine (11.5-14.5) % Plt Count (130-400) K/uL MPV (7.4-10.4) fL Immature Gran % (Auto) % Neut % (Auto) % Lymph % (Auto) % [place] % (Auto) % Eos % (Auto) % Baso % (Auto) % Neut # (Auto) (1.4-6.5) K/uL Lymph # (Auto) (1.2-3.4) K/uL [place] # (Auto) (0.11-0.59) K/uL Eos # (Auto) (0-0.5) K/uL Baso # (Auto) (0-0.2) K/uL Immature Gran # (Auto) (0.00-0.02) K/uL APTT 51.0 H* (21.0-31.0) Seconds PTT Ratio 1.8 Sodium (136-145) mmol/L Potassium (3.5-5.1) mmol/L Chloride (98-107) mmol/L Carbon Dioxide (21-32) mmol/L Anion Gap (3-11) BUN (7-18) mg/dl Creatinine (0.6-1.4) mg/dl Est Cr Clr Drug Dosing ml/min Est GFR ( Amer) Est GFR (Non-Af Amer) BUN/Creatinine Ratio (10-20) Glucose (70-99) mg/dl Calcium (8.5-10.1) mg/dl Albumin (3.4-5.0) gm/dl PG Care Time/CCT Total # of Minutes Spent Total Time Spent with Patient: Total time spent is greater than 50% in coordination of care (as documented) at patient's floor/unit and/or counseling patient: Coding Level of Care Code 00675 Subseq Hosp Care Lvl 2 Diagnoses Gross hematuria R31.0 Self-catheterizes urinary bladder Z78.9 Pulmonary embolism I26.99 CKD (chronic kidney disease) stage 3, GFR 30-59 ml/min N18.30 Hypertension I10 Renal cell carcinoma C64.9 BPH loc w urin obs/LUTS N40.1 COPD (chronic obstructive pulmonary disease) J44.9 CHF (congestive heart failure) I50.9 Osteoarthritis M19.90 Gout M10.9
[2020-10-07] MEDS ORDERED: SODIUM CHLORIDE 0.9% 500 ML IV SCH (15:30)
[2020-10-07 15:43] LABS: Partial Thromboplastin Ratio 2.1
[2020-10-07 15:50] LABS: Partial Thromboplastin Time 59.9 Seconds (21.0-31.0)
[2020-10-07] MEDS: SIMVASTATIN 40 MG TAB PO SCH (20:42)
[2020-10-07] MEDS: allopurinoL 100 MG TAB PO SCH (20:42)
[2020-10-07] MEDS: TAMSULOSIN HCL 0.4 MG CAP PO SCH (20:42)
[2020-10-08 06:28] LABS: Basophils # (auto) 0.04 K/uL (0-0.2); Basophils % (auto) 0.3 %; Eosinophils # (auto) 0.17 K/uL (0-0.5); Eosinophils % (auto) 1.4 %; Hematocrit (blood only) 36.9 % (42-52); Hemoglobin 12.4 g/dL (14.0-18.0); Immature Granulocytes # (auto) 0.04 K/uL (0.00-0.02); Immature Granulocytes % (auto) 0.3 %; Lymphocytes % (auto) 28.2 %; Mean Corpuscular Hemoglobin 31.1 pg (25-34); Mean Corpuscular Hgb Conc 33.6 g/dL (32-36); Mean Corpuscular Volume 92.5 fL (80-100); Mean Platelet Volume 10.4 fL (7.4-10.4); Monocytes # (auto) 0.88 K/uL (0.11-0.59); Monocytes % (auto) 7.1 %; Neutrophils # (auto) 7.78 K/uL (1.4-6.5); Neutrophils % (auto) 62.7 %; Platelet Count 248 K/uL (130-400); RDW Coefficient of Variation 13.1 % (11.5-14.5); RDW Standard Deviation 44.4 fL (36.4-46.3); Red Blood Count 3.99 M/uL (4.7-6.1); White Blood Count 12.41 K/uL (4.8-10.8)
[2020-10-08 06:53] LABS: Partial Thromboplastin Ratio 2.1
[2020-10-08 06:54] LABS: Partial Thromboplastin Time 59.5 Seconds (21.0-31.0)
[2020-10-08 06:56] LABS: BUN Creatinine Ratio 13.8 (10-20); Calcium 8.7 mg/dl (8.5-10.1); Est GFR (Non-African American) 44.9; Potassium 3.7 mmol/L (3.5-5.1)
[2020-10-08] MEDS: FLUTICASONE/VILANTEROL 100/25MCG 14 PUFFS/INHALER INH SCH (09:03)
[2020-10-08] MEDS: CIPROFLOXACIN 500 MG TAB PO SCH ×2 (09:04→20:15)
[2020-10-08] MEDS: METOPROLOL TARTRATE 50 MG TAB PO SCH ×2 (09:05→20:17)
[2020-10-08] MEDS: BETAMETHASONE DIP AUG (DIPROLENE) 0.05% CR 15 GM TUBE EXT SCH ×2 (09:06→20:16)
[2020-10-08] MEDS: HEPARIN SODIUM/DEXTROSE 25,000 UNITS/500 ML BAG IV SCH (11:15)
--- NOTE | 2020-10-08 11:15 | Hospitalist Progress Note ---
Date of Service October 08, 2020 Assessment & Plan (1) Gross hematuria: Mr. Soto is a 74 year old male with a history of CKD, Renal Cell Carcinoma s/p Partial Nephrectomy, Osteoarthritis, COPD, CHF, BPH, and Hypertension -- who was admitted for gross hematuria and is post-op day #2 from cystoscopy with fulguration of prostate varices and clot evacuation. He continues to have hematuria but urine is getting clearer/director oncology, no clots in Red bag. Hgb is 12.4 g/dl today, 12.5 g/dl yesterday. Red catheter in place. Patient usually straight caths himself at home. 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 Patient was also recently diagnosed with Pulmonary Emboli and will require anticoagulation. -- Discontinue Heparin drip. -- Begin Eliquis 10 mg b.i.d x 7 days, then 5 mg b.i.d.. -- Monitor for recurrent hematuria with the introduction of Eliquis. -- H&H tomorrow morning. -- Continue Cipro upon discharge x 7 days. -- Follow-up with Urology within 2 weeks of discharge. -- If no recurrent bleeding over night and H&H remain stable, should be able to discharge tomorrow. (2) Pulmonary embolism: -- Discontinue Heparin drip. -- Begin Eliquis 10 mg b.i.d x 7 days, then 5 mg b.i.d.. -- Monitor for recurrent hematuria with the introduction of Eliquis. -- H&H tomorrow morning. (3) Hypertension: -- Overall, his BP's appear controlled. -- Continue Lopressor 50 mg b.i.d.. -- Lisinopril, HCTZ, and Lasix are currently being held due to renal insufficiency. -- Serum creatinine is 1.50 mg/dl -- down from 2.19 mg/dl on admission. (4) CHF (congestive heart failure): -- Currently appears euvolemic. -- Cumulative I&O's negative 2.9 liters. -- Continue Lopressor 50 mg b.i.d.. -- Maintain a 2 gram low sodium diet. (5) COPD (chronic obstructive pulmonary disease): -- Currently quiescent. -- Resume Advair Diskus after discharge. Admission and Anticipated Discharge Date Admission Date: October 05, 2020 Subjective Mr. Soto is being seen in [facility] Patient was admitted for gross hematuria and is post-op day #2 from cystoscopy with fulguration of prostate varices and clot evacuation. He continues to have hematuria but urine is getting clearer/director oncology, no clots in Red bag. He is comfortable and denies any abdominal or flank pain. He denies any fever, chills, nausea, or vomiting. His appetite is good. Urine culture is abnormal, growing out a bulk materials handling plant operator species -- it is susceptible to Cipro, which he is already on. Also noted to have pulmonary emboli at [facility] -- where he was transferred from. He states that his breathing has been "slowly getting worse over the past couple of years". He feels that his breathing is at baseline currently. Patient offers no other concerns at the present time. He denies any chest pain, cough, or hemoptysis. Physical Exam Physical Exam: GENERAL: Patient in no acute distress. HEENT: Head is atraumatic, normocephalic. EOM's intact. Facies symmetric. No perioral cyanosis. NECK: No JVD. JVP is not elevated. Carotid upstrokes are + 2 bilaterally. CHEST/LUNGS: Clear to auscultation throughout all lung bryant. No wheezes, rales, or crackles. CVS: S1 and S2 are regular without obvious murmurs, gallops, or rubs. PMI is nondisplaced. No lifts, heaves, or thrills. No abdominal aortic or renal bruits. ABDOMINAL EXAM: Bowel sounds are present. No masses, organomegaly, or tenderness. EXTREMITIES: No clubbing or cyanosis. No edema. Calves are non tender. Multiple venous varicosities of legs. Intact radial pulses bilaterally. NEUROLOGIC EXAM: Patient is awake, alert, and oriented. Pleasant and cooperative. Answers questions appropriately. Speech is clear. Results & Data Results & Data ([facility]) Vital Signs (Past 12 Hours) Vital Signs Temp Pulse Resp BP Pulse Ox 10/08/20 07:32 36.5 C 75 16 125/64 94 10/07/20 23:14 37.3 C 71 18 135/69 94 Laboratory Results Laboratory Results - last 24 hr 10/07/20 10/08/20 10/08/20 14:58 05:43 05:43 WBC 12.41 H RBC 3.99 L Hgb 12.4 L Hct 36.9 L MCV 92.5 MCH 31.1 MCHC 33.6 RDW Std Deviation 44.4 RDW Coeff of Katherine 13.1 Plt Count 248 MPV 10.4 Immature Gran % (Auto) 0.3 Neut % (Auto) 62.7 Lymph % (Auto) 28.2 [place] % (Auto) 7.1 Eos % (Auto) 1.4 Baso % (Auto) 0.3 Neut # (Auto) 7.78 H Lymph # (Auto) 3.50 H [place] # (Auto) 0.88 H Eos # (Auto) 0.17 Baso # (Auto) 0.04 Immature Gran # (Auto) 0.04 H APTT 59.9 H* PTT Ratio 2.1 Sodium 137 Potassium 3.7 Chloride 107 Carbon Dioxide 26 Anion Gap 4.0 BUN 21 H Creatinine 1.50 H Est Cr Clr Drug Dosing 55.0 Est GFR ( Amer) 52.0 Est GFR (Non-Af Amer) 44.9 BUN/Creatinine Ratio 13.8 Glucose 96 Calcium 8.7 10/08/20 05:43 WBC RBC Hgb Hct MCV MCH MCHC RDW Std Deviation RDW Coeff of Katherine Plt Count MPV Immature Gran % (Auto) Neut % (Auto) Lymph % (Auto) [place] % (Auto) Eos % (Auto) Baso % (Auto) Neut # (Auto) Lymph # (Auto) [place] # (Auto) Eos # (Auto) Baso # (Auto) Immature Gran # (Auto) APTT 59.5 H* PTT Ratio 2.1 Sodium Potassium Chloride Carbon Dioxide Anion Gap BUN Creatinine Est Cr Clr Drug Dosing Est GFR ( Amer) Est GFR (Non-Af Amer) BUN/Creatinine Ratio Glucose Calcium Medications Administered Active Medications Generic Name Dose Route Start Last Admin Trade Name Freq PRN Reason Stop Dose Admin Acetaminophen 650 mg 10/05/20 01:42 10/07/20 03:07 Acetaminophen 325 Mg Tab PO 11/04/20 01:41 650 mg Q4H PRN Administration Pain Allopurinol 100 mg 10/05/20 21:00 10/07/20 20:42 Allopurinol 100 Mg Tab PO 11/04/20 20:59 100 mg QPM SHANT Administration Apixaban 10 mg 10/08/20 13:00 10/08/20 13:37 Apixaban 5 Mg Tablet PO 10/15/20 12:59 10 mg BID SHANT Administration Betamethasone Dipropion Augmented 1 appln 10/05/20 09:00 10/08/20 09:06 Betamethasone Dip Aug (Diprolene) 0.05% Cr 15 Gm Tube EXT 11/04/20 08:59 1 appln BID SHANT Administration Ciprofloxacin 500 mg 10/07/20 05:00 10/08/20 09:04 Ciprofloxacin 500 Mg Tab PO 10/12/20 04:59 500 mg BID SHANT Administration Protocol Fluticasone/Vilanterol 1 puffs 10/05/20 09:00 10/08/20 09:03 Fluticasone/Vilanterol 100/25mcg 14 Puffs/Inhaler INH 11/04/20 08:59 1 puffs DAILY SHANT Administration Metoprolol Tartrate 50 mg 10/05/20 09:00 10/08/20 09:05 Metoprolol Tartrate 50 Mg Tab PO 11/04/20 08:59 50 mg BID SHANT Administration Ondansetron HCl 4 mg 10/04/20 22:48 Ondansetron Inj 2 Mg/Ml 2 Ml Vial IV 11/03/20 22:47 Q6H PRN Nausea Polyethylene Glycol 17 gm 10/04/20 22:48 Polyethylene (Miralax) 17 Gm Pack PO 11/03/20 22:47 DAILY PRN Constipation Simvastatin 40 mg 10/05/20 21:00 10/07/20 20:42 Simvastatin 40 Mg Tab PO 11/04/20 20:59 40 mg HS SHANT Administration Tamsulosin HCl 0.4 mg 10/05/20 21:00 10/07/20 20:42 Tamsulosin Hcl 0.4 Mg Cap PO 11/04/20 20:59 0.4 mg HS SHANT Administration PG Care Time/CCT Total # of Minutes Spent Total Time Spent with Patient: Total time spent is greater than 50% in coordination of care (as documented) at patient's floor/unit and/or counseling patient:25 Coding Level of Care Code 06363 Subseq Hosp Care Lvl 3 Diagnoses Gross hematuria R31.0 Pulmonary embolism I26.99 Hypertension I10 CHF (congestive heart failure) I50.9 COPD (chronic obstructive pulmonary disease) J44.9 Time Spent (min) 45
--- NOTE | 2020-10-08 11:24 | Urology Progress Note ---
Date of Service October 08, 2020 Assessment & Plan (1) Gross hematuria: 74yo M admitted with gross hematuria -POD #2 s/p Cystoscopy, Fulguration of Bladder, Fulguration of Prostate Varicosities, Clot Evacuation with Dr. Kraft Primary team is likely going to try to transition back to patient's blood thinners and prepare for anticipated discharge. Can continue to titrate irrigation as needed. Will need to maintain catheter for likely 1 week with plans to see back in the office. We will likely need repeat cystoscopy at some point to reassess bladder. Due to significant bleed and severe irritation of the dome difficult to fully assess bladder at that time. We will need to confi rm and reassess at a later date to attempt to find any possible sources of bleeding and retention issues Patient did have bleeding prostatic varicosities as well as multiple areas of ulcerated and irritated bleeding areas on the dome. Will likely need repeat imaging at some point to reassess kidney after embolization. Would recommend CT scan with contrast if planning to image in near future. If patient remains stable can likely imaging next 1 to 2 months. Patient CBI was turned off this morning and did have increased to a light pink color on examination today. Can continue to hold CBI or restarted if patient has considerable darkening or issues with clot formation. At this point would continue with supportive care utilizing CBI as needed until other medical issues and concerns have subsided. Irrigant had been completely clear overnight while CBI was running. Patient was found to be positive for culture and is on antibiotics for coverage. As infection and other issues resolve will likely have much better control of bleeding issues. Admission and Anticipated Discharge Date Admission Date: October 05, 2020 Subjective Patient admitted with gross hematuria on anticoagulants due to PE Patient underwent fulguration of bladder and prostate bleed with clot evacuation and currently has three-way catheter with irrigation. Patient is afebrile. Has been undergoing supportive care with oral medications, IV medications, IV fluids, and oral intake. Is doing better without considerable increase in pain or major issues. Has not developed severe vomiting or other issues. Has not experienced fever or chills. Has been tolerating oral medications. Is tolerating fluids. Has noticed some frequency and urgency. Has not had severe pain in the back and flank. Does have occasional burning and irritation. No severe episodes or major changes. Has not passed a large amount of blood or debris or required aggressive irrigation since fulguration Review of Systems Review of Systems: All systems reviewed & are unremarkable except as noted in HPI & below Physical Exam Physical Exam: General: Alert in no acute distress. HEENT: Normocephalic Atraumatic. Inspection normal. Cranial Nerves 2-12 Grossly intact. Normal inspection of face. Normal inspection of neck. Psychologic: Normal affect. Respiratory: Nonlabored. No use of accessory muscles. No tachypnea or dyspnea. Cardiovascular: No tachycardia Skin: [place] and Dry. No rashes or visible lesions. Extremities/Lymphatics: No edema Abdomen: Soft Non-distended. No rebound or guarding. : Catheter in place draining clear urine light pink in color Results & Data ([facility]) Vital Signs (Past 12 Hours) Vital Signs Temp Pulse Resp BP Pulse Ox 10/08/20 07:32 36.5 C 75 16 125/64 94 PG Care Time/CCT Total # of Minutes Spent Total Time Spent with Patient: Total time spent is greater than 50% in coordination of care (as documented) at patient's floor/unit and/or counseling patient: Coding Level of Care Code 59084 Subseq Hosp Care Lvl 3 Diagnoses Gross hematuria R31.0
[2020-10-08] MEDS: APIXABAN 5 MG TABLET PO SCH ×2 (13:37→23:21)
[2020-10-08] MEDS ORDERED: APIXABAN 5 MG TABLET PO SCH (15:00)
[2020-10-08] MEDS: TAMSULOSIN HCL 0.4 MG CAP PO SCH (20:17)
[2020-10-08] MEDS: allopurinoL 100 MG TAB PO SCH (20:18)
[2020-10-08] MEDS: SIMVASTATIN 40 MG TAB PO SCH (20:18)
[2020-10-09] MEDS: FLUTICASONE/VILANTEROL 100/25MCG 14 PUFFS/INHALER INH SCH (08:55)
[2020-10-09] MEDS: METOPROLOL TARTRATE 50 MG TAB PO SCH (08:56)
[2020-10-09] MEDS: BETAMETHASONE DIP AUG (DIPROLENE) 0.05% CR 15 GM TUBE EXT SCH (08:56)
[2020-10-09] MEDS: CIPROFLOXACIN 500 MG TAB PO SCH (08:56)
[2020-10-09] MEDS: APIXABAN 5 MG TABLET PO SCH (08:56)
--- NOTE | 2020-10-09 10:30 | Urology Progress Note ---
Date of Service October 09, 2020 Assessment & Plan (1) Gross hematuria: 74yo M admitted with gross hematuria -POD #3 s/p Cystoscopy, Fulguration of Bladder, Fulguration of Prostate Varicosities, Clot Evacuation Patient is being covered with antibiotics for culture positive UTI. He is un dergoing supportive care. CBI is off and likely can remain off at this point. If clots or obstruction, can continue to be managed and attempting to titrate to clear with plans to discontinue moving forward. Can place catheter plug in CBI port once disconnected. Plan to hopefully keep off without major return of issues or symptoms. Will need to maintain catheter for likely 1 week with plans to see back in the office. We will likely need repeat cystoscopy at some point to reassess bladder. Due to significant bleed and severe irritation of the dome difficult to fully assess bladder at that time. We will need to confirm and reassess at a later date to attempt to find any possible sources of bleeding and retention issues Patient did have bleeding prostatic varicosities as well as multiple areas of ulcerated and irritated bleeding areas on the dome. Will likely need repeat imaging at some point to reassess kidney after embolization. Would recommend CT scan with contrast if planning to image in near future. If patient remains stable can likely imaging next 1 to 2 months. Okay to discharge as long as patient remains stable and no worsening issues. Plan for followup in office. Admission and Anticipated Discharge Date Admission Date: October 05, 2020 Subjective Postop from fulguration and clot evacuation with catheter placement and CBI. Patient has been tolerating well. Has noticed some frequency and urgency. Has not had severe pain in the back and flank. Does have occasional burning and irritation. No severe episodes or major changes. No new nausea or vomiting. Nursing has been trying to titrate to clear. Currently off. Patient had been transitioning from bathroom back to bed and did not have any major changes. Yesterday, Patient did have return of hematuria when complately off or when moving or lifting heavy but was not severe and does not appear to have large clot. With moving today even with CBI off, patient remained clear to light yellow without clots or debris. Review of Systems Review of Systems: All systems reviewed & are unremarkable except as noted in HPI & below Physical Exam Physical Exam: General: Alert in no acute distress. HEENT: Normocephalic Atraumatic. Inspection normal. Cranial Nerves 2-12 Grossly intact. Normal inspection of face. Normal inspection of neck. Psychologic: Normal affect. Respiratory: Nonlabored. No use of accessory muscles. No tachypnea or dyspnea. Cardiovascular: No tachycardia Skin: [place] and Dry. No rashes or visible lesions. Extremities/Lymphatics: No edema Abdomen: Soft Non-distended. No rebound or guarding. : Catheter in place draining clear urine light yellow in color Results & Data ([facility]) Vital Signs (Past 12 Hours) Vital Signs Temp Pulse Resp BP Pulse Ox 10/09/20 07:35 36.9 C 85 16 130/71 93 10/08/20 23:30 37.3 C 81 18 134/72 94 PG Care Time/CCT Total # of Minutes Spent Total Time Spent with Patient: Total time spent is greater than 50% in coordination of care (as documented) at patient's floor/unit and/or counseling patient: Coding Level of Care Code 02662 Subseq Hosp Care Lvl 3 Diagnoses Gross hematuria R31.0
--- NOTE | 2020-10-09 14:26 | Discharge Summary ---
Date of Service October 09, 2020 Admission HPI Per Admitting Provider This patient is a 74-year-old male who gets most of his care done at other facilities. He has a history of right renal cell carcinoma resulting in partial nephrectomy complicated by postoperative bleeding that required embolization in 2016, TURP secondary to hypertrophy but continues to require self cath 3 times daily, RLE DVT "20 years ago", unable to recall any treatment, COPD, CHF unknown type, gout, OA, colon cancer status post partial colectomy, HTN. Last week approximately on Sep 28, the patient went to [facility] because he felt week and like he was going to pass out and was having fevers and chills. He had a negative Covid test at that time and he was diagnosed with a UTI and had a CTA of his chest that revealed a right pulmonary embolism (we have since obtained the images and are scanned into PACS) and reportedly was in the posterior pulmonary artery 2nd and 3rd branch. He was started on therapeutic Lovenox at that time and was told to follow-up with his PCP. During this stay there was attempt at placing a ramirez catheter, which the patient reports as very difficult and after the placement of the ramirez catheter is when he started having dark red hematuria. The patient was discharged with instructions to follow up with PCP. The patient went back to the [facility] yesterday for persistent hematuria. The urine did not have any clots, and has lightened up since yesterday. There was no blood on his underwear, or michele blood coming from penis, there was no blood from penis when he finished urination either. NON-CON CT of the abdomen completed today. See results below. Patient's HGB level stable from previous at 14, patient has no CP and is not symptomatic from blood loss in urine. 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 Patient BUN and [employer] elevated, and historical values show that his creatinine was 1.9 on 09/26 at outside hospital. Patient will be admitted to medical surgical floor. IVF for pre-renal support and follow amount of hematuria. Will consult urology. Does not appear to have an obstruction nor bleeding coming from below the bladder. Transition anticoagulation from Lovenox to Heparin drip for now for pulmonary embolism in case of recurrent heavy bleeding. Admission Exam Per Admitting Provider See H&P. Principal Diagnosis Gross hematuria Discharge Exam Temp Pulse Resp BP Pulse Ox 36.9 C 85 16 130/71 93 10/09/20 07:35 10/09/20 07:35 10/09/20 07:35 10/09/20 07:35 10/09/20 07:35 Patient is afebrile. Vital signs stable. Constitutional + obese; no acute distress ENMT Ears: + hearing impairment (hard of hearing ) Neck trachea midline, no thyromegaly Respiratory normal respiratory effort, lungs clear to auscultation Cardiovascular RRR, no murmur, no edema Gastrointestinal (Abdomen) Inspection/Auscultation: normal bowel sounds Percussion/Palpation: abdomen soft; abdomen nontender Psychiatric A+Ox3, euthymic affect Lymphatic no cervical lymphadenopathy Discharge Data Allergies Allergy/AdvReac Type Severity Reaction Status Date / Time adhesive Allergy Unknown RASH Verified 10/04/20 21:12 morphine AdvReac Mild N/V Verified 10/04/20 21:12 Consultations 10/04/20 19:19 ED Decision to Admit Stat 10/04/20 21:00 Consult Urology Routine 10/04/20 22:48 Consult Case Management - Discharge Planning Routine Procedures Performed Operation Date: 10/06/20 14:40 Actual Procedures p Cystoscopy, Fulguration of Bladder, Fulguration of Prostate, Clot Evacuation - Girish Kraft, Ordered Studies 10/04/20 17:24 CT abd pelvis wo con Stat 10/04/20 21:00 US venous doppler LE Urgent Hospital Course (1) Gross hematuria: POD #3 s/p cystoscopy and fulguration of bladder. Ramirez catheter remains in place. CBI clamped for 2 hours with no gross hematuria in drainage bag. H&H stable. Eliquis initiated yesterday. 10mg BID x 7 days and then 5mg BID. Continue Cipro x 7 days. F/u with urology in 1 week for trial of void. (2) Pulmonary embolism: Continue Eliquis 10mg BID x 7 days then 5mg BID. Monitor for recurrent hematuria. (3) Hypertension: BP stable and controlled at 130/71. Continue Lopressor 50mg BID. Lisinopril, HCTZ, and Lasix are currently being held due to renal insufficiency. Cr now 1.5. Resume medications upon discharge, and f/u with PCP in 1 week with a BMP. (4) CHF (congestive heart failure): Continue Lopressor 50mg BID. 2gm low sodium diet recommended. (5) COPD (chronic obstructive pulmonary disease): Stable. Continue Advair Diskus. Total Time Total Time Spent Total Time Spent (In Minutes): 60 minutes Total Time Includes: Examination of the Patient, Discharge Planning, Medication Reconciliation and Communication With Other Providers Discharge Plan Discharge Items Patient Disposition: Home - Self-Care Reason For Visit: HEMATURIA Discharge Diagnosis: Hematuria Activity: As commented below Activity Comment: Limit heavy activity until you follow-up with urology. Lifting: No more than 10 pounds Bathing: No limitations Sexual Activity: Wait until after follow-up appointment Exercise/Sports: None Driving/Machine Use: Resume 3 days after discharge Weightbearing: Full weightbearing Non-emergency contact: Primary Care Provider and Urologist Call non-emergency contact if: your symptoms worsen, your pain is concerning for you and you have a fever Follow-up/Referrals: Girish Kraft DO [Physician] - (1 week) Cesar Simon D.O. [Primary Care Provider] - Diet: Low Sodium (2gm) Addtl Attending Provider Instructions: Follow-up with your primary care provider in 1 week with a BMP. Pending Studies at Discharge: No Stand-Alone Forms: My [facility] [employer] Medications and DC Order Prescriptions: New ciprofloxacin HCl 500 mg Tablet 500 mg PO BID 7 Days Qty: 14 RF: 0 tamsulosin 0.4 mg Capsule 0.4 mg PO HS 30 Days Qty: 30 RF: 0 Eliquis 5 mg Tablet 10 mg PO BID 5 Days Qty: 20 RF: 0 Eliquis 5 mg tablet 5 mg PO BID 30 Days Qty: 60 RF: 0 Continued celecoxib [Celebrex] 200 mg capsule 200 mg PO BID PRN (Reason: ..) RF: 0 fluticasone propion-salmeterol [Advair Diskus] 250-50 mcg/dose blister with device 1 ea INHALATION BID RF: 0 lisinopril 20 mg tablet 20 mg PO QPM RF: 0 betamethasone, augmented 0.05 % cream 1 applic TOPICAL BID RF: 0 allopurinol [Zyloprim] 100 mg tablet 100 mg PO QPM RF: 0 aspirin [Aspir-Low] 81 mg Tablet,Delayed Release (Dr/Ec) 81 mg PO DAILY RF: 0 simvastatin 40 mg tablet 40 mg PO HS RF: 0 metoprolol tartrate 50 mg tablet 50 mg PO BID RF: 0 hydrochlorothiazide 25 mg tablet 25 mg PO DAILY RF: 0 furosemide [Lasix] 20 mg tablet 20 mg PO DAILY RF: 0 cinnamon bark [Cinnamon] 500 mg Capsule 500 mg PO DAILY RF: 0 diclofenac sodium 1 % gel 2 g TOPICAL TID PRN (Reason: Pain) RF: 0 Glucosamine Boswella & D 1 tab PO BID RF: 0 Discontinued enoxaparin 100 mg/mL syringe 100 mg subcut HS RF: 0 enoxaparin 120 mg/0.8 mL syringe 120 mg subcut QAM RF: 0 Discharge Orders: Discharge Order (Routine); Ordered 10/09/20 Ordered By: Roxanne Musa Admission Data Admit Date/Time: 10/05/20 14:43 Attending Provider: Steven Marvin Admit Provider: Kecia Webster Primary Care Provider: Cesar Simon Other Providers: Inga Lorenzo Christophe T. Coding Level of Care Code D/C Day Management >30 mins Diagnoses Gross hematuria R31.0 Pulmonary embolism I26.99 Hypertension I10 CHF (congestive heart failure) I50.9 COPD (chronic obstructive pulmonary disease) J44.9
--- NOTE | 2020-10-24 11:17 | Coding Query ---
CODING QUERY To promote full compliance with coding requirements relating to patient care, provider participation is requested in all cases of loss prevention guard uncertainty. Please assist us with the question(s) below: Coding Question(s): 1. Pulmonary Embolism is documented in the record and on Discharge Summary. Please specify below, in your clinical opinion, regarding the Pulmonary Embolism. ( ) Acute Pulmonary Embolism treated ( ) Chronic Pulmonary Embolism treated ( xx ) History of Pulmonary Embolism 2. Gross Hematuria is documented in the record and on Discharge Summary. Please specify below, in your clinical opinion, the most likely etiology. 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 ( ) Gross Hematuria likely due to Other: Please Specify ( xx ) Gross Hematuria - Unknown etiology Physician's Response(s): Thank you Karol Carvajal Principal Diagnosis: "that condition established after study, to be chiefly responsible for occasioning the admission of the patient to the hospital for care." Co-Existing Principal Diagnosis: "when two or more diagnoses equally meet the criteria for principal diagnosis as determined by the circumstances of admission, diagnostic work up, and/or therapy provided, and the Alphabetic Index, Tabular List, or another coding guideline does not provide sequencing direction, any one of the diagnoses may be sequenced first." "When the physician has documented what appears to be a current diagnosis in the body of the record, but has not included the diagnosis in the final diagnostic statement, the physician should be asked whether the diagnosis should be added." (Source Coding [facility] 2 QTR90. p3-4) PRINCESS
== END 2020-10-09 16:30 | disposition home or self-care (01) | DRG 663 ==
LOC: 3N 14:06 → ED 14:06 → SUATTDRO 21:00 → 3N 22:26